=== PATIENT | male | born 1975 | race Two or more races ===

== ENCOUNTER 2020-01-07 08:45 | Inpatient (IN) | payer MEDICAID ==
[~2020-01-07] VITALS: Ht 157.5 cm; Wt 76.0 kg
--- NOTE | 2020-01-07 08:48 | Emergency Room Report ---
History of Present Illness General Chief Complaint: Chest Pain Source: Patient Present Illness HPI 44-year-old male here with left-sided chest pain. The patient says that approximately 1.5 hours prior to come to the emergency department he had the onset of left-sided chest pain. Pain is sharp in nature, radiates to his left shoulder. Patient has a history of diabetes, though is unsure of what medicine he is taking for that. Has a history of CAD status post stent placement at [facility] 1 year ago. Patient was given an aspirin en route to the emergency department by paramedics. Denies headaches, lightheadedness, fevers, chills, palpitations, shortness of breath, abdominal pain, diaphoresis, nausea, vomiting, diarrhea, dysuria. Allergies: Coded Allergies: PENICILLINS (Verified Allergy, Unknown, 01/07/20) COVID-19 Screening Contact w/high risk pt: No Experienced COVID-19 symptoms?: No COVID-19 Testing performed DIRECTOR OF PATIENT FINANCIAL SERVICES: No Nursing Documentation-[facility] Past Medical History: No History, Except For Hx Cardiac Problems: Yes Hx Diabetes: Yes Review of Systems All Other Systems: negative except mentioned in HPI Physical Exam Sp02 EP Interpretation: reviewed, normal General Appearance: no apparent distress, alert, non-toxic, moderate distress, other - Appears uncomfortable clutching his left chest Head: normocephalic, atraumatic Eyes: bilateral eye normal inspection, bilateral eye PERRL ENT: hearing grossly normal, normal pharynx, no angioedema, normal voice Neck: full range of motion, supple/symm/no masses Respiratory: chest non-tender, lungs clear, normal breath sounds, speaking full sentences Cardiovascular #1: regular rate, rhythm, no edema Cardiovascular #2: 2+ carotid (R), 2+ carotid (L), 2+ radial (R), 2+ radial (L), 2+ dorsalis pedis (R), 2+ dorsalis pedis (L) Gastrointestinal: normal bowel sounds, non tender, soft, non-distended, no guarding, no rebound Rectal: deferred Genitourinary: normal inspection, no CVA tenderness Musculoskeletal: back normal, normal range of motion, gait/station normal, non- tender Neurologic: alert, motor strength/tone normal, oriented x3, sensory intact, responsive, speech normal Psychiatric: judgement/insight normal, memory normal, mood/affect normal, no suicidal/homicidal ideation Lymphatic: no adenopathy Medical Decision Making Diagnostic Impression: Primary Impression: Chest pain Additional Impressions: KATHARINE (acute kidney injury) Anemia ER Course EKG: NSR, no ischemia, intervals WNL. No ectopy. 81bpm Rhythm strip: patient monitored for arrhythmias - no malignant dysrhythmias, runs of PVCs, nor pauses noted HEART score: 4 44-year-old male here with acute onset of left-sided chest pain. Patient is a history of CAD and had a highly concerning story and appeared uncomfortable on physical examination. He was given 4 mg of morphine in the emergency department. Received aspirin en route to the emergency department. He was noted to be hypertensive at 180/90 and was given 10 mg of labetalol IV. Patient denied any drug usage. CBC revealed anemia with hemoglobin of 9.7. Patient unaware of what his baseline hemoglobin is. CMP notable for severe acute kidney injury with a BUN of 57 and creatinine of 4.5. Patient unaware of what his baseline creatinine is. Patient denies any use of nephrotoxins. Electrolytes largely unremarkable including a normal potassium. Chest x-ray unremarkable. CT angiography of the chest unable to be performed due to the patient's severe acute kidney injury. Patient admitted to telemetry. Total critical care time: Approximately 25 minutes Due to a high probability of clinically significant, life threatening deterioration, the patient required the highest level of preparedness to intervene emergently and I personally spent this critical care time directly and personally managing the patient. This critical care time included obtaining a history, examining the patient, pulse oximetry, ordering and reviewing studies, ordering treatments, evaluating response to treatment and updating management plan as needed, frequent reassessment and discussion with other providers as well as arranging for ultimate disposition. This critical to care time was performed to assess and manage the high probability of life-threatening deterioration that could result in multiorgan failure. This critical care time is separate from the separately billable procedures and treating other patients. Laboratory Tests Test 01/07/20 08:45 01/07/20 08:48 D-Dimer 0.78 mg/L FEU (0.00-0.49) H Total Creatine Kinase 137 U/L (26-308) White Blood Count 7.1 K/UL (4.8-10.8) Red Blood Count 3.26 M/UL (4.70-6.10) L Hemoglobin 9.7 G/DL (14.2-18.0) L Hematocrit 29.5 % (42.0-52.0) L Mean Corpuscular Volume 91 FL (80-99) Mean Corpuscular Hemoglobin 29.9 PG (27.0-31.0) Mean Corpuscular Hemoglobin Concent 33.0 G/DL (32.0-36.0) Red Cell Distribution Width 13.1 % (11.6-14.8) Platelet Count 187 K/UL (150-450) Mean Platelet Volume 15.6 FL (6.5-10.1) H Neutrophils (%) (Auto) 63.6 % (45.0-75.0) Lymphocytes (%) (Auto) 23.2 % (20.0-45.0) Monocytes (%) (Auto) 5.1 % (1.0-10.0) Eosinophils (%) (Auto) 6.6 % (0.0-3.0) H Basophils (%) (Auto) 1.6 % (0.0-2.0) Sodium Level 137 MMOL/L (136-145) Potassium Level 5.0 MMOL/L (3.5-5.1) Chloride Level 106 MMOL/L (98-107) Carbon Dioxide Level 18 MMOL/L (21-32) L Blood Urea Nitrogen 54 mg/dL (7-18) H Creatinine 4.5 MG/DL (0.55-1.30) H Estimated Glomerular Filtration Rate 14.3 mL/min (>60) Glucose Level 163 MG/DL (74-106) H Calcium Level 8.1 MG/DL (8.5-10.1) L Total Bilirubin 0.2 MG/DL (0.2-1.0) Aspartate Amino Transferase (AST) 31 U/L (15-37) Alanine Aminotransferase (ALT) 59 U/L (12-78) Alkaline Phosphatase 255 U/L (46-116) H Troponin I 0.000 ng/mL (0.000-0.056) Total Protein 6.7 G/DL (6.4-8.2) Albumin 3.1 G/DL (3.4-5.0) L Globulin 3.6 g/dL Albumin/Globulin Ratio 0.9 (1.0-2.7) L Scripts Unable to Obtain Active Prescriptions or Reported Meds Uziel Jo M.D. Jan 07, 2020 08:48
[2020-01-07 08:50] VITALS: BP 176/78
--- NOTE | 2020-01-07 08:50 | NUR ---
ED Nurse Note: Pt BIBA for CP 12/17 since 744 this morning L chest, radiating to L arm. Pt is alert and orientedx4, ambulatory. Pt set up on monitor. Pt denies nausea, vomiting. Pt was given aspirin 324 mg. Blood sent and drawn. Pt came with 16g IV.
[2020-01-07 09:00] LABS: BASOPHILS % (AUTO) 1.6 % (0.0-2.0); EOSINOPHILS % (AUTO) 6.6 % (0.0-3.0); HEMATOCRIT 29.5 % (42.0-52.0); HEMOGLOBIN 9.7 G/DL (14.2-18.0); LYMPHOCYTES % (AUTO) 23.2 % (20.0-45.0); MEAN CORPUSCULAR VOLUME 91 FL (80-99); MONOCYTES % (AUTO) 5.1 % (1.0-10.0); NEUTROPHILS % (AUTO) 63.6 % (45.0-75.0); PLATELET COUNT 187 K/UL (150-450); RED BLOOD COUNT 3.26 M/UL (4.70-6.10); RED CELL DISTRIBUTION WIDTH 13.1 % (11.6-14.8); WHITE BLOOD COUNT 7.1 K/UL (4.8-10.8)
[2020-01-07] MEDS ORDERED: Morphine Sulfate 4mg/ml Inj (IV USE ONLY) ONE (09:00)
[2020-01-07] MEDS ORDERED: Morphine Sulfate 4mg/ml Inj (IV USE ONLY) IVP ONE (09:00)
[2020-01-07] MEDS ORDERED: Labetalol 5mg/ml 20ml vial IV ONE (09:15)
[2020-01-07 09:26] LABS: ALANINE AMINOTRANSFERASE 59 U/L (12-78); ALBUMIN 3.1 G/DL (3.4-5.0); ALBUMIN/GLOBULIN RATIO 0.9 (1.0-2.7); ALKALINE PHOSPHATASE 255 U/L (46-116); ASPARTATE AMINO TRANSFERASE 31 U/L (15-37); BILIRUBIN,TOTAL 0.2 MG/DL (0.2-1.0); BLOOD UREA NITROGEN 54 mg/dL (7-18); CALCIUM 8.1 MG/DL (8.5-10.1); CARBON DIOXIDE 18 MMOL/L (21-32); CHLORIDE 106 MMOL/L (98-107); CREATININE 4.5 MG/DL (0.55-1.30); SODIUM 137 MMOL/L (136-145)
--- NOTE | 2020-01-07 09:37 | NUR ---
EMERGENCY CONTACT: Cliff (sister): [phone]
[2020-01-07] MEDS ORDERED: HYDROmorphone 1mg/ml Carpuject IVP ONE (09:45)
[2020-01-07 09:51] LABS: CREATINE KINASE 137 U/L (26-308)
--- NOTE | 2020-01-07 09:56 | NUR ---
ED Nurse Note: COVID swab sent.
--- NOTE | 2020-01-07 10:05 | NUR ---
ED Nurse Note: Nursing a p supervisor Enma called regarding pt wanting to put money in safe.
--- NOTE | 2020-01-07 10:30 | NUR ---
ED Nurse Note: ERMD notified that pt unable to provide urine. Pt refuses straight cath.
--- NOTE | 2020-01-07 11:11 | NUR ---
ED Nurse Note: Pts money given to nursing supervisor dried yeast.
[2020-01-07 11:12] VITALS: BP 158/88
--- NOTE | 2020-01-07 11:41 | NUR ---
ED Nurse Note: Report given to Gladis BANERJEE.
--- NOTE | 2020-01-07 11:45 | NUR ---
NURSE NOTES: Pt transferred from ED via gurney to room 219-2. Received report from Madeline belonging check list done and signed with the transferring nurse. Pt alert and oriented X4, able to make needs known. site monitor placed, vital signs taken. Pt has cellphone [employer] at bedside. Pt has two IV acces right hand 16G and right AC 18G, both patent and clean. Pt oriented to room, call light and bathroom. Side rails up X2. Will follow up with primary dr for admissions orders.
--- NOTE | 2020-01-07 11:50 | NUR ---
ED Nurse Note: Pt transferred to tele unit with all belongings. No acute distress. Received by RN.
[2020-01-07 11:57] VITALS: BP 162/97
[2020-01-07] MEDS ORDERED: LISINOPRIL10 MG ORAL (12:53)
[2020-01-07] MEDS ORDERED: NORVASC10 MG ORAL (12:53)
[2020-01-07] MEDS ORDERED: LANTUS SOL100 UNIT/1 SUBQ (12:53)
[2020-01-07] MEDS ORDERED: ASPIRIN81 MG ORAL (12:53)
[2020-01-07] MEDS ORDERED: ATORVASTATIN CA80 MG ORAL (12:53)
--- NOTE | 2020-01-07 13:02 | Diagnostic Imaging Report ---
Indication: Chest pain Technique: One view of the chest Comparison: none Findings: Lungs and pleural spaces are clear. Heart size is normal. Impression: No acute process
--- NOTE | 2020-01-07 13:49 | Cardiac Electrophysiology PN ---
Subjective Subjective [id number] Objective Last 24 Hour Vital Signs Date Time Temp Pulse Resp B/P (MAP) Pulse Ox O2 Delivery O2 Flow Rate FiO2 01/07/20 11:57 97.7 86 19 162/97 (118) 97 01/07/20 11:57 Room Air 01/07/20 11:50 98.2 91 18 137/82 99 Room Air 01/07/20 11:12 98.6 83 18 158/88 99 Room Air 01/07/20 10:20 98.6 01/07/20 09:40 98.6 01/07/20 09:11 92 178/87 01/07/20 08:50 86 16 Room Air 98 01/07/20 08:50 98.6 86 16 176/78 98 Room Air 01/07/20 08:43 98.6 82 18 167/100 (122) 98 Room Air Laboratory Tests Test 01/07/20 08:45 01/07/20 08:48 D-Dimer 0.78 mg/L FEU (0.00-0.49) H Total Creatine Kinase 137 U/L (26-308) White Blood Count 7.1 K/UL (4.8-10.8) Red Blood Count 3.26 M/UL (4.70-6.10) L Hemoglobin 9.7 G/DL (14.2-18.0) L Hematocrit 29.5 % (42.0-52.0) L Mean Corpuscular Volume 91 FL (80-99) Mean Corpuscular Hemoglobin 29.9 PG (27.0-31.0) Mean Corpuscular Hemoglobin Concent 33.0 G/DL (32.0-36.0) Red Cell Distribution Width 13.1 % (11.6-14.8) Platelet Count 187 K/UL (150-450) Mean Platelet Volume 15.6 FL (6.5-10.1) H Neutrophils (%) (Auto) 63.6 % (45.0-75.0) Lymphocytes (%) (Auto) 23.2 % (20.0-45.0) Monocytes (%) (Auto) 5.1 % (1.0-10.0) Eosinophils (%) (Auto) 6.6 % (0.0-3.0) H Basophils (%) (Auto) 1.6 % (0.0-2.0) Sodium Level 137 MMOL/L (136-145) Potassium Level 5.0 MMOL/L (3.5-5.1) Chloride Level 106 MMOL/L (98-107) Carbon Dioxide Level 18 MMOL/L (21-32) L Blood Urea Nitrogen 54 mg/dL (7-18) H Creatinine 4.5 MG/DL (0.55-1.30) H Estimat Glomerular Filtration Rate 14.3 mL/min (>60) Glucose Level 163 MG/DL (74-106) H Calcium Level 8.1 MG/DL (8.5-10.1) L Total Bilirubin 0.2 MG/DL (0.2-1.0) Aspartate Amino Transf (AST/SGOT) 31 U/L (15-37) Alanine Aminotransferase (ALT/SGPT) 59 U/L (12-78) Alkaline Phosphatase 255 U/L (46-116) H Troponin I 0.000 ng/mL (0.000-0.056) Total Protein 6.7 G/DL (6.4-8.2) Albumin 3.1 G/DL (3.4-5.0) L Globulin 3.6 g/dL Albumin/Globulin Ratio 0.9 (1.0-2.7) L Microbiology Date/Time Source Procedure Growth Status 01/07/20 09:50 Nasopharynx SARS-CoV-2 RdRp Gene Assay - Final Complete Phan Pereira MD Jan 07, 2020 13:49
--- NOTE | 2020-01-07 13:54 | Consultation ---
Consult Note Consult Note I am asked to evaluate the patient at the request of Dr. Smith For renal failure 44-year-old male here with left-sided chest pain. The patient says that approximately 1.5 hours prior to come to the emergency department he had the onset of left-sided chest pain. Pain is sharp in nature, radiates to his left shoulder. Patient has a history of diabetes, though is unsure of what medicine he is taking for that. Has a history of CAD status post stent placement at [facility] 1 year ago. Patient was given an aspirin en route to the emergency department by paramedics. Denies headaches, lightheadedness, fevers, chills, palpitations, shortness of breath, abdominal pain, diaphoresis, nausea, vomiting, diarrhea, dysuria. Allergies: PENICILLINS (Verified Allergy, Unknown, 01/07/20) COVID-19 Screening Contact w/high risk pt: No Experienced COVID-19 symptoms?: No COVID-19 Testing performed SKILLED NURSING FACILITIES PROFESSIONAL: No Past Medical History: No History, Except For Hx Cardiac Problems: Yes Hx Diabetes: Yes SOCIAL HISTORY: He has a history of cocaine and methamphetamine use, but it was a couple of years ago. PHYSICAL EXAMINATION: VITAL SIGNS: Blood pressure of 160/97, pulse is 86, respirations 19, temperature 97.7. HEAD AND NECK: No JVD. LUNGS: Clear. CARDIOVASCULAR: Regular S1 and S2 with no gallop or murmur. ABDOMEN: Soft. EXTREMITIES: No pitting edema. LABORATORY AND DIAGNOSTIC DATA: His EKG showed normal sinus rhythm, essentially normal electrocardiogram. Labs show sodium of 137, potassium 5.0, BUN of 54, creatinine 4.5, and glucose of 163. Troponin is negative. White count is 7.5, hematocrit 9.7, hematocrit 29.5, platelet count of 187. . Assessment/Plan Acute renal failure, possible underlying chronic kidney disease Chest pain, coronary artery disease Anemia Hypertension Diabetes mellitus Suggestions: Urine studies Urine analysis Urine tox screen [place] Kidney ultrasound Anemia work-up Keep the blood pressure and blood sugar in check Avoid nephrotoxic's Per orders Hung Pennington MD Jan 07, 2020 13:54
[2020-01-07] MEDS ORDERED: Zolpidem 5mg tab ORAL PRN (14:15)
--- NOTE | 2020-01-07 14:15 | History and Physical Report ---
DATE OF ADMISSION: 01/07/2020 TIME SEEN: 10 a.m. CONSULTANTS: 1. Sreedhar Aguirre MD. 2. Hung Pennington MD. 3. Phan Pereira MD. CHIEF COMPLAINT: Chest pain. BRIEF HISTORY: This is a 44-year-old male, who lives at home, presents with chest pain, since early this morning. It was pressure like, no radiation, slight short of breath. No loss of consciousness. The patient was feeling little weak and dizzy, came to [place], diagnosed as above in the ER, now being admitted to [facility]. Currently slightly anxious in bed, slightly weak. No complaint otherwise. REVIEW OF SYSTEMS: Slight chest pain. Slightly short of breath. Slight nausea. No vomiting or diarrhea. PAST MEDICAL HISTORY: Includes diabetes, CAD, hypertension, KATHARINE. PAST SURGICAL HISTORY: Stent placement. ALLERGIES: Penicillin. MEDICATIONS: Include hydromorphone, labetalol, morphine. SOCIAL HISTORY: No smoking. No alcohol. No intravenous drug abuse. FAMILY HISTORY: Noncontributory. PHYSICAL EXAMINATION: GENERAL: Slightly anxious in bed, oriented x3, in no acute distress. VITAL SIGNS: Temperature is 98 degrees, pulse 92, respirations 16, blood pressure __/87. CARDIOVASCULAR: No murmur. LUNGS: Distant and clear. ABDOMEN: Bowel sound positive. Nontender. Nondistended. EXTREMITIES: No cyanosis or edema. NEUROLOGIC: The patient moves all extremities, slightly weak. LABORATORY AND DIAGNOSTIC DATA: Labs at this time show hemoglobin and hematocrit 9.0/29, otherwise CBC is normal. BMP showed CO2 18, BUN and creatinine are 54/4.5, renal failure. Glucose 163. Troponin 0.00. Albumin 3.1. D-dimer is 0.78. ASSESSMENT: 1. Chest pain. 2. Shortness of breath. 3. Renal failure. 4. Weakness. 5. Anemia. 6. Malnutrition. 7. Diabetes. 8. Hypertension. 9. CAD. PLAN: 1. Resume home medications. 2. Blood pressure and blood sugar control. 3. Pain control. 4. Dietary followup. 5. Troponin q.8 h. x3. 6. EKG in a.m. 7. Cardiology, Nephrology, and Endocrine evaluation. 8. CBC and BMP in the morning. Santiago Esqueda D.O. DR: TENA JOB#: [id number] CC:
[2020-01-07] MEDS: Tamsulosin 0.4mg cap ORAL SCH ×2 (14:58→18:16)
[2020-01-07 16:00] VITALS: BP 174/89
--- NOTE | 2020-01-07 16:51 | Diagnostic Imaging Report ---
Indication: Acute renal failure Technique: Grayscale and duplex images of the kidneys, retroperitoneum, and bladder were obtained. Comparison: none Findings: Right kidney measures 9 cm in length. Left kidney measures 10.2 cm in length. Both kidneys demonstrate normal echogenicity. No hydronephrosis. No focal abnormality. Normal inferior vena cava. Bladder is normal. Impression: negative.
--- NOTE | 2020-01-07 18:45 | Consultation ---
DATE OF CONSULTATION: 01/07/2020 CARDIOLOGY CONSULTATION REFERRING PHYSICIAN: Santiago Esqueda D.O. REASON FOR THE CONSULTATION: Chest pain. HISTORY OF PRESENT ILLNESS: The patient is a 44-year-old gentleman with a history of hypertension, diabetes, and history of CVA in the past, with a history of coronary artery disease, history of prior stent placement, who presented to the emergency room with 1-1/2 hours of left-sided chest pain with radiation to the arm. He denies any nausea, vomiting, syncope, or presyncope. The stent was in [facility] about a year ago. The patient received aspirin and was admitted. His EKG was completely normal with no evidence of ischemia, and his first troponin was negative. REVIEW OF SYSTEMS: Negative other than what was mentioned in history of present illness. PAST MEDICAL HISTORY: As mentioned above. FAMILY HISTORY: Noncontributory. SOCIAL HISTORY: He has a history of cocaine and methamphetamine use, but it was a couple of years ago. PHYSICAL EXAMINATION: VITAL SIGNS: Blood pressure of 160/97, pulse is 86, respirations 19, temperature 97.7. HEAD AND NECK: No JVD. LUNGS: Clear. CARDIOVASCULAR: Regular S1 and S2 with no gallop or murmur. ABDOMEN: Soft. EXTREMITIES: No pitting edema. LABORATORY AND DIAGNOSTIC DATA: His EKG showed normal sinus rhythm, essentially normal electrocardiogram. Labs show sodium of 137, potassium 5.0, BUN of 54, creatinine 4.5, and glucose of 163. Troponin is negative. White count is 7.5, hematocrit 9.7, hematocrit 29.5, platelet count of 187. ASSESSMENT AND PLAN: 1. Chest pain and left arm pain. The patient is with a history of coronary artery disease and prior stent in [place]. We will try to get those records from [facility]. In the meantime, continue aspirin and add beta-lucas and continue Lipitor 80 mg daily. 2. We will also get an echocardiogram for further evaluation. 3. Hypertension. Avoid YOUSUF inhibitor and angiotensin-receptor lucas in view of creatinine of 4.5. Start the patient on amlodipine 10 mg daily and discontinue lisinopril. We will add p.r.n. clonidine to his medical regimen. Increase lisinopril to 10 mg and add metoprolol 25 mg b.i.d. 4. Hyperlipidemia, on Lipitor 80 mg daily. 5. Diabetes, on insulin. 6. History of prior CVA in April 2018. 7. Acute renal failure, creatinine of 4.5. Thank you very much for allowing me to participate in the care of this patient. Please do not hesitate to contact me for any questions regarding my evaluation. Phan Pereira M.D. DR: KRYSTAL JOB#: [id number] CC:
--- NOTE | 2020-01-07 19:17 | NUR ---
NURSE HAND-OFF REPORT: Important Events on Shift:New admissions Patient Status: stable Diet: Renal Pending Orders: Pending Results/Labs: Pending MD notification: Latest Vital Signs: Temperature 97.7 , Pulse 88 , B/P 174 /89 , Respiratory Rate 21 , O2 SAT 100 , Room Air, O2 Flow Rate . Vital Sign Comment: Stable EKG Rhythm: Sinus Rhythm Rhythm change?: N MD Notified?: - MD Response: Latest Flores Fall Score: 35 Fall Risk: Medium Risk Safety Measures: Call light Within Reach, Bed Alarm Zone 1, Side Rails Side Rails x2, Bed position Low and Locked. Fall Precautions: Door Sign Patient Fall Education Report given to [place]/RN.
--- NOTE | 2020-01-07 19:33 | NUR ---
NURSE NOTES: Patient received from Gladis RN. Patient in stable condition. Alert and ortiented x 4. Resting in bed comfortably. Saturating well on Room Air. Georgian speaking. IV site alina Right hand 18G and Right AC 18G Saline locked. Bed in lwoest position and locked. Call light and bedside table within reach. Will continue plan of care.
--- NOTE | 2020-01-07 19:55 | NUR ---
NURSE NOTES: Patient complaining of Chest pain that feels heavy rating it 10/10 and radiating to left arm. Dr Esqueda covering for Dr Sarmiento notified as well as Cardio consult Dr. Pereira. Awaiting call back.
[2020-01-07 20:00] VITALS: BP 159/85
[2020-01-07] MEDS: Morphine Sulfate 2mg/ml Inj(IV/IM USE ONLY) IVP PRN (20:45)
[2020-01-07] MEDS: Atorvastatin 80mg tab ORAL SCH (20:45)
[2020-01-07] MEDS: Heparin 5000 units/ml inj SUBQ SCH (20:55)
[2020-01-07] MEDS: Levemir Flexpen SUBQ SCH (20:55)
--- NOTE | 2020-01-07 21:18 | NUR ---
NURSE NOTES: MD called back ordered for Nitroglycerin SL verified and carried out. Gave PRN medication. Patient still complaining of Left arm pain but no more chest pain. STAT EKG done and sent over to Dr. Pereira.
[2020-01-07] MEDS: Nitroglycerin Subl 0.4mg tab SL PRN ×2 (21:29→21:40)
[2020-01-08] VITALS: BP 157/87
[2020-01-08] MEDS: Morphine Sulfate 2mg/ml Inj(IV/IM USE ONLY) IVP PRN ×5 (01:39→21:35)
--- NOTE | 2020-01-08 01:50 | NUR ---
NURSE NOTES: Faxed over Request for release of medical records at [facility] as per Dr. Pereira to confirm procedures done in the hospital
[2020-01-08 04:00] VITALS: BP 153/86
--- NOTE | 2020-01-08 07:37 | NUR ---
NURSE HAND-OFF REPORT: Important Events on Shift:[Chest pain radiating to left arm MD aware] Patient Status: [] Diet: [Renal Diet and CCHO Medium] Pending Orders: [] Pending Results/Labs:[] Pending MD notification:[] Latest Vital Signs: Temperature 97.6 , Pulse 74 , B/P 153 /86 , Respiratory Rate 20 , O2 SAT 99 , Room Air, O2 Flow Rate . Vital Sign Comment: [] EKG Rhythm: Sinus Rhythm Rhythm change?: N MD Notified?: - MD Response: Latest Flores Fall Score: 35 Fall Risk: Medium Risk Safety Measures: Call light Within Reach, Bed Alarm Zone 1, Side Rails Side Rails x1, Bed position Low and Locked. Fall Precautions: Yellow Socks Yellow Gown Door Sign Patient Fall Education Report given to [Kandace BANERJEE].
[2020-01-08 08:00] VITALS: BP 152/75
--- NOTE | 2020-01-08 08:00 | NUR ---
NURSE NOTES: pt AOx4, and talking. currently having L arm pain but no chest pain. Pt on audit mgr. Pt has no SOB. Bed in lowest position, call light within reach. Will continue to monitor.
[2020-01-08 08:42] LABS: BASOPHILS % (AUTO) 0.9 % (0.0-2.0); EOSINOPHILS % (AUTO) 4.8 % (0.0-3.0); HEMATOCRIT 26.2 % (42.0-52.0); HEMOGLOBIN 8.6 G/DL (14.2-18.0); LYMPHOCYTES % (AUTO) 13.9 % (20.0-45.0); MEAN CORPUSCULAR VOLUME 90 FL (80-99); MONOCYTES % (AUTO) 4.4 % (1.0-10.0); NEUTROPHILS % (AUTO) 75.9 % (45.0-75.0); PLATELET COUNT 162 K/UL (150-450); RED CELL DISTRIBUTION WIDTH 13.5 % (11.6-14.8); WHITE BLOOD COUNT 6.8 K/UL (4.8-10.8)
[2020-01-08] MEDS: Aspirin Baby 81mg ORAL SCH (08:48)
[2020-01-08] MEDS: Tamsulosin 0.4mg cap ORAL SCH ×2 (08:48→17:24)
[2020-01-08] MEDS: Heparin 5000 units/ml inj SUBQ SCH ×2 (08:50→20:51)
[2020-01-08] MEDS ORDERED: Aspirin Baby 81mg ORAL SCH (09:00)
[2020-01-08 09:11] LABS: % IRON SATURATION 15 % (15-50); GAMMA GLUTAMYL TRANSPEPTIDASE 66 U/L (5-85); IRON 36 ug/dL (50-175); PHOSPHORUS 4.9 MG/DL (2.5-4.9); TOTAL IRON BINDING CAPACITY 245 ug/dL (250-450)
[2020-01-08 09:15] LABS: CREATINE KINASE 111 U/L (26-308)
[2020-01-08 09:16] LABS: ALANINE AMINOTRANSFERASE 42 U/L (12-78); ALBUMIN/GLOBULIN RATIO 0.9 (1.0-2.7); ALKALINE PHOSPHATASE 216 U/L (46-116); ASPARTATE AMINO TRANSFERASE 20 U/L (15-37); BILIRUBIN,TOTAL 0.2 MG/DL (0.2-1.0); BLOOD UREA NITROGEN 46 mg/dL (7-18); CALCIUM 8.2 MG/DL (8.5-10.1); CARBON DIOXIDE 17 MMOL/L (21-32); CHLORIDE 103 MMOL/L (98-107); CHOLESTEROL 180 MG/DL (< 200); CREATININE 3.8 MG/DL (0.55-1.30); FERRITIN 177 NG/ML (8-388); HDL CHOLESTEROL 59 MG/DL (40-60); POTASSIUM 4.6 MMOL/L (3.5-5.1); SODIUM 133 MMOL/L (136-145); TRIGLYCERIDES 130 MG/DL (30-150)
--- NOTE | 2020-01-08 10:20 | General Progress Note ---
Subjective Constitutional: Reports: weakness Allergies: Coded Allergies: PENICILLINS (Verified Allergy, Unknown, 01/07/20) All Systems: reviewed and negative except above Subjective calm in bed Objective Last 24 Hour Vital Signs Date Time Temp Pulse Resp B/P (MAP) Pulse Ox O2 Delivery O2 Flow Rate FiO2 01/08/20 09:04 Room Air 01/08/20 08:48 78 152/75 01/08/20 08:00 97.6 78 18 152/75 (100) 97 01/08/20 04:00 74 01/08/20 04:00 97.6 74 20 153/86 (108) 99 01/08/20 00:00 84 01/08/20 00:00 97.5 76 18 157/87 (110) 99 01/07/20 21:40 100/71 01/07/20 21:29 140/80 01/07/20 21:00 Room Air 01/07/20 20:00 85 01/07/20 20:00 98.1 82 21 159/85 (109) 99 01/07/20 18:16 174/89 01/07/20 16:00 97.7 71 21 174/89 (117) 100 01/07/20 16:00 88 01/07/20 12:00 78 01/07/20 11:57 97.7 86 19 162/97 (118) 97 01/07/20 11:57 Room Air 01/07/20 11:50 98.2 91 18 137/82 99 Room Air 01/07/20 11:12 98.6 83 18 158/88 99 Room Air 01/07/20 10:20 98.6 Intake and Output 01/07/20 01/08/20 19:00 07:00 Intake Total 480 ml Balance 480 ml Intake Oral 480 ml # Voids 4 # Bowel Movements 1 Laboratory Tests 01/07/20 15:30: Troponin I 0.007 01/07/20 20:53: POC Whole Blood Glucose [Pending] 01/07/20 23:05: Troponin I 0.010 01/08/20 08:25: Troponin I 0.005, White Blood Count 6.8, Red Blood Count 2.90L, Hemoglobin 8.6L, Hematocrit 26.2L, Mean Corpuscular Volume 90, Mean Corpuscular Hemoglobin 29.8, Mean Corpuscular Hemoglobin Concent 33.0, Red Cell Distribution Width 13.5, Platelet Count 162, Mean Platelet Volume 16.1H, Neutrophils (%) (Auto) 75.9H, Lymphocytes (%) (Auto) 13.9L, Monocytes (%) (Auto) 4.4, Eosinophils (%) (Auto) 4.8H, Basophils (%) (Auto) 0.9, Sodium Level 133L, Potassium Level 4.6, Chloride Level 103, Carbon Dioxide Level 17L, Blood Urea Nitrogen 46H, Creatinine 3.8H, Estimat Glomerular Filtration Rate 17.4, Glucose Level 118H, Hemoglobin A1c 5.6, Uric Acid 7.2, Calcium Level 8.2L, Phosphorus Level 4.9, Magnesium Level 1.4L, Iron Level 36L, Total Iron Binding Capacity 245L, Percent Iron Saturation 15, Unsaturated Iron Binding 209, Ferritin 177, Total Bilirubin 0.2, Gamma Glutamyl Transpeptidase 66, Aspartate Amino Transf (AST/SGOT) 20, Alanine Aminotransfe rase (ALT/SGPT) 42, Alkaline Phosphatase 216H, Total Creatine Kinase 111, C- Reactive Protein, Quantitative 0.9, Pro-B-Type Natriuretic Peptide 343H, Total Protein 6.4, Albumin 3.0L, Globulin 3.4, Albumin/Globulin Ratio 0.9L, Triglycerides Level 130, Cholesterol Level 180, LDL Cholesterol 100, HDL Ch olesterol 59, Cholesterol/HDL Ratio 3.1L, Vitamin B12 Level 845, Folate 6.9L, Thyroid Stimulating Hormone (TSH) 3.229 Height (Feet): 5 Height (Inches): 2.00 Weight (Pounds): 160 General Appearance: lethargic EENT: normal ENT inspection Neck: normal alignment Cardiovascular: normal peripheral pulses, normal rate, regular rhythm Respiratory/Chest: chest wall non-tender, lungs clear, normal breath sounds Abdomen: normal bowel sounds, non tender, soft Extremities: normal inspection Edema: no edema noted Arm (L), no edema noted Arm (R), no edema noted Leg (L), no edema noted Leg (R), no edema noted Pedal (L), no edema noted Pedal (R), no edema noted Generalized Neurologic: motor weakness Skin: normal pigmentation, warm/dry Assessment/Plan Problem List: (1) SOB (shortness of breath) ICD Codes: R06.02 - Shortness of breath SNOMED: 084262144 (2) HTN (hypertension) ICD Codes: I10 - Essential (primary) hypertension SNOMED: 06047389 (3) Diabetes ICD Codes: E11.9 - Type 2 diabetes mellitus without complications SNOMED: 32710354 (4) Malnutrition ICD Codes: E46 - Unspecified protein-calorie malnutrition SNOMED: 08618031 (5) Weak ICD Codes: R53.1 - Weakness SNOMED: 98178120 (6) Anemia ICD Codes: D64.9 - Anemia, unspecified SNOMED: 513429597 (7) Chest pain ICD Codes: R07.9 - Chest pain, unspecified SNOMED: 02981003 (8) KATHARINE (acute kidney injury) ICD Codes: N17.9 - Acute kidney failure, unspecified SNOMED: 62803474, 1625959 Status: unchanged Assessment/Plan: pain control cardio neph f/u cbc bmp am Santiago Esqueda DO Jan 08, 2020 10:20
--- NOTE | 2020-01-08 11:31 | NUR ---
NURSE NOTES: notifed doctor Esqueda of patients latest labs, waiting for orders.
[2020-01-08 12:00] VITALS: BP 157/92
--- NOTE | 2020-01-08 12:56 | NUR ---
NURSE NOTES: Dr. Esqueda advised to contact doctor Gorge, doctor is aware of labs, he will put orders soon.
--- NOTE | 2020-01-08 14:30 | NUR ---
NURSE NOTES: per T/O order 2mg of magnesium sulfate IV once. Doctor Gorge will enter the remaining orders once he has access to a computer.
--- NOTE | 2020-01-08 15:12 | Cardiac Electrophysiology PN ---
Assessment/Plan Assessment/Plan 1. Chest pain and left arm pain. The patient is with a history of coronary artery disease and prior stent. We will try to get those records from [facility] Ruled out for DC. In the meantime, continue aspirin and Lipitor 80 mg daily and Lopressor 25 bid. EF 65% 2. Hypertension. Avoid YOUSUF inhibitor and angiotensin-receptor lucas in view of creatinine of 4.5. On amlodipine 10 mg daily, p.r.n. clonidine add metoprolol 25 mg b.i.d. 4. Hyperlipidemia, on Lipitor 80 mg daily. 5. Diabetes, on insulin. 6. History of prior CVA in April 2018. 7. Acute renal failure, creatinine of 4.5. Cr now is 3.5 DW RN Subjective Subjective No CP or SOB.In SR on tele Objective Last 24 Hour Vital Signs Date Time Temp Pulse Resp B/P (MAP) Pulse Ox O2 Delivery O2 Flow Rate FiO2 01/08/20 12:00 97.9 86 18 157/92 (113) 100 01/08/20 09:04 Room Air 01/08/20 08:48 78 152/75 01/08/20 08:00 97.6 78 18 152/75 (100) 97 01/08/20 08:00 77 01/08/20 04:00 74 01/08/20 04:00 97.6 74 20 153/86 (108) 99 01/08/20 00:00 84 01/08/20 00:00 97.5 76 18 157/87 (110) 99 01/07/20 21:40 100/71 01/07/20 21:29 140/80 01/07/20 21:00 Room Air 01/07/20 20:00 85 01/07/20 20:00 98.1 82 21 159/85 (109) 99 01/07/20 18:16 174/89 01/07/20 16:00 97.7 71 21 174/89 (117) 100 01/07/20 16:00 88 Intake and Output 01/07/20 01/08/20 19:00 07:00 Intake Total 480 ml Balance 480 ml Intake Oral 480 ml # Voids 4 # Bowel Movements 1 Laboratory Tests Test 01/07/20 15:30 01/07/20 20:53 01/07/20 23:05 01/08/20 08:25 Troponin I 0.007 ng/mL (0.000-0.056) 0.010 ng/mL (0.000-0.056) 0.005 ng/mL (0.000-0.056) POC Whole Blood Glucose Pending White Blood Count 6.8 K/UL (4.8-10.8) Red Blood Count 2.90 M/UL (4.70-6.10) L Hemoglobin 8.6 G/DL (14.2-18.0) L Hematocrit 26.2 % (42.0-52.0) L Mean Corpuscular Volume 90 FL (80-99) Mean Corpuscular Hemoglobin 29.8 PG (27.0-31.0) Mean Corpuscular Hemoglobin Concent 33.0 G/DL (32.0-36.0) Red Cell Distribution Width 13.5 % (11.6-14.8) Platelet Count 162 K/UL (150-450) Mean Platelet Volume 16.1 FL (6.5-10.1) H Neutrophils (%) (Auto) 75.9 % (45.0-75.0) H Lymphocytes (%) (Auto) 13.9 % (20.0-45.0) L Monocytes (%) (Auto) 4.4 % (1.0-10.0) Eosinophils (%) (Auto) 4.8 % (0.0-3.0) H Basophils (%) (Auto) 0.9 % (0.0-2.0) Sodium Level 133 MMOL/L (136-145) L Potassium Level 4.6 MMOL/L (3.5-5.1) Chloride Level 103 MMOL/L (98-107) Carbon Dioxide Level 17 MMOL/L (21-32) L Blood Urea Nitrogen 46 mg/dL (7-18) H Creatinine 3.8 MG/DL (0.55-1.30) H Estimat Glomerular Filtration Rate 17.4 mL/min (>60) Glucose Level 118 MG/DL (74-106) H Hemoglobin A1c 5.6 % (4.3-6.0) Uric Acid 7.2 MG/DL (2.6-7.2) Calcium Level 8.2 MG/DL (8.5-10.1) L Phosphorus Level 4.9 MG/DL (2.5-4.9) Magnesium Level 1.4 MG/DL (1.8-2.4) L Iron Level 36 ug/dL (50-175) L Total Iron Binding Capacity 245 ug/dL (250-450) L Percent Iron Saturation 15 % (15-50) Unsaturated Iron Binding 209 ug/dL (112-346) Ferritin 177 NG/ML (8-388) Total Bilirubin 0.2 MG/DL (0.2-1.0) Gamma Glutamyl Transpeptidase 66 U/L (5-85) Aspartate Amino Transf (AST/SGOT) 20 U/L (15-37) Alanine Aminotransferase (ALT/SGPT) 42 U/L (12-78) Alkaline Phosphatase 216 U/L (46-116) H Total Creatine Kinase 111 U/L (26-308) C-Reactive Protein, Quantitative 0.9 mg/dL (0.00-0.90) Pro-B-Type Natriuretic Peptide 343 pg/mL (0-125) H Total Protein 6.4 G/DL (6.4-8.2) Albumin 3.0 G/DL (3.4-5.0) L Globulin 3.4 g/dL Albumin/Globulin Ratio 0.9 (1.0-2.7) L Triglycerides Level 130 MG/DL (30-150) Cholesterol Level 180 MG/DL (< 200) LDL Cholesterol 100 mg/dL (<100) HDL Cholesterol 59 MG/DL (40-60) Cholesterol/HDL Ratio 3.1 (3.3-4.4) L Vitamin B12 Level 845 PG/ML (193-986) Folate 6.9 NG/ML (8.6-58.9) L Thyroid Stimulating Hormone (TSH) 3.229 uiU/mL (0.358-3.740) Microbiology Date/Time Source Procedure Growth Status 01/07/20 09:50 Nasopharynx SARS-CoV-2 RdRp Gene Assay - Final Complete Objective HEAD AND NECK: No JVD. LUNGS: Clear. CARDIOVASCULAR: Regular S1 and S2 with no gallop or murmur. ABDOMEN: Soft. EXTREMITIES: No pitting edema. Phan Pereira MD Jan 08, 2020 15:12
[2020-01-08 16:00] VITALS: BP 138/84
--- NOTE | 2020-01-08 16:00 | Consultation ---
DATE OF CONSULTATION: 01/08/2020 ENDOCRINOLOGY CONSULTATION REFERRING PHYSICIAN: Santiago Esqueda D.O. REASON FOR CONSULTATION: Diabetes management. HISTORY OF PRESENT ILLNESS: The patient is a 44-year-old male with past medical history of diabetes, on insulin, hypertension, history of CVA, coronary artery disease, stent placement, and chronic kidney disease, who presented to the hospital with chest pain. Glucose was elevated, thus Endocrinology was consulted. PAST MEDICAL HISTORY: 1. Chronic kidney disease. 2. Hypertension. 3. Diabetes. 4. CVA. 5. Coronary disease, with stent placement. PAST SURGICAL HISTORY: Stent placement. FAMILY HISTORY: Noncontributory. SOCIAL HISTORY: Has history of cocaine and methamphetamine abuse a couple of years ago. No alcohol or drug use. REVIEW OF SYSTEMS: As per HPI. MEDICATIONS: Reviewed and reconciled. LABORATORY VALUES: WBC 6, hemoglobin 8.6, hematocrit 26.2, platelet count 162. Sodium 132, potassium 4.6, chloride 103, bicarb 17, BUN 46, creatinine 3.6, GFR of 17, glucose 118. A1c 5.6, on presentation had a glucose of 163, alk phos 253. TSH is 3.2. PHYSICAL EXAMINATION: GENERAL: Awake and alert. VITAL SIGNS: Blood pressure 152/75, heart rate 78, temperature 97.6, respiratory rate of 18. HEENT: Pupils equal and reactive to light. Sclerae anicteric. NECK: No JVD. No thyromegaly. No bruits. LUNGS: Clear. HEART: Regular rate and rhythm. ABDOMEN: Positive bowel sounds. EXTREMITIES: No clubbing, cyanosis, or edema. DIAGNOSES: 1. Chest pain. 2. Diabetes, out of control. 3. Chronic kidney disease. PLAN: 1. Levemir 6 units at bedtime. 2. NovoLog sliding scale before meals and at bedtime. 3. Hypoglycemia protocol is in order. 4. Further adjustment according to the blood glucose values. Thank you Dr. Esqueda for the courtesy of this consultation. Sreedhar Aguirre M.D. DR: PAULA JOB#: [id number] CC: MADDIE
--- NOTE | 2020-01-08 18:59 | NUR ---
NURSE HAND-OFF REPORT: Important Events on Shift:patient is complaining of arm pain 9/10 but no chest pain or SOB. Warm towels seem to be helping with arm pain Patient Status: full code Diet: ccho M Pending Orders: morning labs Pending Results/Labs: Pending MD notification: Latest Vital Signs: Temperature 98.8 , Pulse 87 , B/P 138 /84 , Respiratory Rate 18 , O2 SAT 98 , Room Air, O2 Flow Rate . Vital Sign Comment: EKG Rhythm: Sinus Rhythm Rhythm change?: N MD Notified?: - MD Response: Latest Flores Fall Score: 35 Fall Risk: Medium Risk Safety Measures: Call light Within Reach, Bed Alarm Zone 1, Side Rails Side Rails x1, Bed position Low and Locked. Fall Precautions: Yellow Socks y Yellow Gown y Door Sign Patient Fall Education y pt able to walk to the restroom on his own Report given to Starla/RN .
--- NOTE | 2020-01-08 19:30 | NUR ---
NURSE NOTES: Received report from LAVONNE Jeronimo. Patient is awake on bed, alert and oriented x 4. surveillance monitor is in place, shows sinus rhythm with no chest pain reported. On renal CCHO (Medium), instructed and amenable. On room air, sating 98%. IV site is on right hand g-18 saline lock and right AC G-18 saline lock that is patent and intact. Patient is ambulatory with steady gait. Safety measures are in place, bed in lowest and locked position, side rails up x 2, call light button and bedside table within reach, will continue plan of care.
--- NOTE | 2020-01-08 19:31 | Nephrology Progress Note ---
Assessment/Plan Problem List: (1) KATHARINE (acute kidney injury) (2) Anemia (3) Diabetes (4) HTN (hypertension) Assessment Acute renal failure, possible underlying chronic kidney disease Chest pain, coronary artery disease Anemia Hypertension Diabetes mellitus Plan Magnesium supplement IV Urine studies Urine analysis Urine tox screen Flomax Kidney ultrasound, normal, negative hydronephrosis Anemia work-up, noted Keep the blood pressure and blood sugar in check Avoid nephrotoxic's Per orders Subjective ROS Limited/Unobtainable: No Constitutional: Reports: malaise, weakness Objective Objective Last 24 Hour Vital Signs Date Time Temp Pulse Resp B/P (MAP) Pulse Ox O2 Delivery O2 Flow Rate FiO2 01/08/20 16:00 98.8 87 18 138/84 (102) 98 01/08/20 15:30 80 01/08/20 12:00 97.9 86 18 157/92 (113) 100 01/08/20 12:00 94 01/08/20 09:04 Room Air 01/08/20 08:48 78 152/75 01/08/20 08:00 97.6 78 18 152/75 (100) 97 01/08/20 08:00 77 01/08/20 04:00 74 01/08/20 04:00 97.6 74 20 153/86 (108) 99 01/08/20 00:00 84 01/08/20 00:00 97.5 76 18 157/87 (110) 99 01/07/20 21:40 100/71 01/07/20 21:29 140/80 01/07/20 21:00 Room Air 01/07/20 20:00 85 01/07/20 20:00 98.1 82 21 159/85 (109) 99 Intake and Output 01/07/20 01/08/20 19:00 07:00 Intake Total 480 ml Balance 480 ml Intake Oral 480 ml # Voids 4 # Bowel Movements 1 Current Medications Medications (Trade) Dose Ordered Sig/Jose Enrique Route PRN Reason Start Time Stop Time Status Last Admin Dose Admin Acetaminophen (Tylenol) 650 mg Q6H PRN ORAL For Pain 01/07/20 14:15 02/06/20 14:14 01/07/20 14:59 Amlodipine Besylate (Norvasc) 10 mg DAILY ORAL 01/08/20 09:00 02/07/20 08:59 01/08/20 08:48 Aspirin (ASA) 81 mg DAILY ORAL 01/08/20 09:00 02/22/20 08:59 01/08/20 08:48 Atorvastatin Calcium (Lipitor) 80 mg BEDTIME ORAL 01/07/20 21:00 04/06/20 20:59 01/07/20 20:45 Clonidine HCl (Catapres Tab) 0.1 mg Q4H PRN ORAL sbp>170 01/07/20 14:00 04/06/20 13:59 01/07/20 18:16 Dextrose (Dextrose 50%) 25 ml Q30M PRN IV Hypoglycemia 01/07/20 14:30 04/06/20 14:29 Dextrose (Dextrose 50%) 50 ml Q30M PRN IV Hypoglycemia 01/07/20 14:30 04/06/20 14:29 Heparin Sodium (Porcine) (Heparin 5000 units/ml) 5,000 units EVERY 12 HOURS SUBQ 01/07/20 21:00 02/21/20 20:59 01/08/20 08:50 Insulin Detemir (Levemir) 6 units BEDTIME SUBQ 01/07/20 21:00 04/06/20 20:59 01/07/20 20:55 Metoprolol Tartrate (Lopressor) 25 mg Q12HR ORAL 01/08/20 21:00 04/07/20 20:59 Morphine Sulfate (Morphine Sulfate) 2 mg Q4H PRN IVP For Pain 01/07/20 20:30 01/14/20 20:29 01/08/20 17:25 Nitroglycerin (Ntg) 0.4 mg Q5M PRN SL Prn Chest Pain 01/07/20 21:20 02/06/20 21:19 01/07/20 21:40 Tamsulosin HCl (Flomax) 0.4 mg BID ORAL 01/08/20 18:00 02/07/20 17:59 01/08/20 17:24 Zolpidem Tartrate (Ambien) 5 mg HSPRN PRN ORAL Insomnia 01/07/20 14:15 01/14/20 14:14 Laboratory Tests 01/07/20 20:53: POC Whole Blood Glucose [Pending] 01/07/20 23:05: Troponin I 0.010 01/08/20 08:25: Troponin I 0.005, White Blood Count 6.8, Red Blood Count 2.90L, Hemoglobin 8.6L, Hematocrit 26.2L, Mean Corpuscular Volume 90, Mean Corpuscular Hemoglobin 29.8, Mean Corpuscular Hemoglobin Concent 33.0, Red Cell Distribution Width 13.5, Platelet Count 162, Mean Platelet Volume 16.1H, Neutrophils (%) (Auto) 75.9H, Lymphocytes (%) (Auto) 13.9L, Monocytes (%) (Auto) 4.4, Eosinophils (%) (Auto) 4.8H, Basophils (%) (Auto) 0.9, Sodium Level 133L, Potassium Level 4.6, Chloride Level 103, Carbon Dioxide Level 17L, Blood Urea Nitrogen 46H, Creatinine 3.8H, Estimat Glomerular Filtration Rate 17.4, Glucose Level 118H, Hemoglobin A1c 5.6, Uric Acid 7.2, Calcium Level 8.2L, Phosphorus Level 4.9, Magnesium Level 1.4L, Iron Level 36L, Total Iron Binding Capacity 245L, Percent Iron Saturation 15, Unsaturated Iron Binding 209, Ferritin 177, Total Bilirubin 0.2, Gamma Glutamyl Transpeptidase 66, Aspartate Amino Transf (AST/SGOT) 20, Alanine Aminotransferas e (ALT/SGPT) 42, Alkaline Phosphatase 216H, Total Creatine Kinase 111, C- Reactive Protein, Quantitative 0.9, Pro-B-Type Natriuretic Peptide 343H, Total Protein 6.4, Albumin 3.0L, Globulin 3.4, Albumin/Globulin Ratio 0.9L, Triglycerides Level 130, Cholesterol Level 180, LDL Cholesterol 100, HDL Bita sterol 59, Cholesterol/HDL Ratio 3.1L, Vitamin B12 Level 845, Folate 6.9L, Thyroid Stimulating Hormone (TSH) 3.229 Height (Feet): 5 Height (Inches): 2.00 Weight (Pounds): 160 General Appearance: no apparent distress, lethargic Cardiovascular: normal rate Respiratory/Chest: decreased breath sounds Abdomen: distended Hung Pennington MD Jan 08, 2020 19:31
[2020-01-08 20:00] VITALS: BP 162/89
[2020-01-08] MEDS: NovoLOG Insulin Flexpen SUBQ SCH (20:52)
[2020-01-08] MEDS: Levemir Flexpen SUBQ SCH (20:54)
[2020-01-08] MEDS: Atorvastatin 80mg tab ORAL SCH (20:55)
[2020-01-08 21:55] LABS: APPEARANCE,URINE CLEAR; BILIRUBIN, URINE NEGATIVE (NEGATIVE); COLOR,URINE PALE YELLOW; GLUCOSE, URINE (UA) 2+ (NEGATIVE); KETONES,URINE NEGATIVE (NEGATIVE); LEUKOCYTE ESTERASE ,URINE NEGATIVE (NEGATIVE); NITRITE,URINE NEGATIVE (NEGATIVE); PH,URINE 6.5 (4.5-8.0); PROTEIN,URINE 3+ (NEGATIVE); UROBILINOGEN,URINE NORMAL MG/DL (0.0-1.0)
[2020-01-09] VITALS: BP 155/81
[2020-01-09] MEDS: Morphine Sulfate 2mg/ml Inj(IV/IM USE ONLY) IVP PRN ×3 (01:41→18:56)
[2020-01-09 04:00] VITALS: BP 161/87
[2020-01-09] MEDS: NovoLOG Insulin Flexpen SUBQ SCH ×4 (05:56→21:00)
--- NOTE | 2020-01-09 07:12 | NUR ---
NURSE HAND-OFF REPORT: Important Events on Shift: Patient has been complaining of left arm pain, non-radiating, scale of 5-6. Morphine 2mg was given and warm compress provided. Patient Status: Patient is awake on bed in stable condition. Plan of care endorsed. RN made aware of UDS and urinalysis result. Diet: Renal, CCHO medium Pending Orders: none Pending Results/Labs: BMP, CBC, Uric, Mg, Phos, CMP and BTNP results Pending MD notification:none Latest Vital Signs: Temperature 99.0 , Pulse 85 , B/P 161 /87 , Respiratory Rate 19 , O2 SAT 98 , Room Air, O2 Flow Rate . Vital Sign Comment: stable EKG Rhythm: Sinus Rhythm Rhythm change?: N MD Notified?: - MD Response: Latest Flores Fall Score: 35 Fall Risk: Medium Risk Safety Measures: Call light Within Reach, Bed Alarm Zone 1, Side Rails Side Rails x2, Bed position Low and Locked. Fall Precautions: Yellow Socks Yellow Gown Door Sign Patient Fall Education Report given to LAVONNE Jeronimo.
--- NOTE | 2020-01-09 07:50 | NUR ---
NURSE NOTES: pt in bed resting, pt has Left arm pain that gets better with warm towels and morphine. AOx 4. pt has no SOB or chest pain. pt on pvc monitor no signs of cardiac or respiratory distress at this time. Bed is locked and in lowest position. Call light within reach. pt is having breakfast right now. Will continue to monitor pt.
[2020-01-09 08:00] VITALS: BP 161/92
[2020-01-09 08:36] LABS: BASOPHILS % (AUTO) 0.7 % (0.0-2.0); EOSINOPHILS % (AUTO) 3.9 % (0.0-3.0); HEMATOCRIT 27.6 % (42.0-52.0); HEMOGLOBIN 9.1 G/DL (14.2-18.0); LYMPHOCYTES % (AUTO) 13.7 % (20.0-45.0); MEAN CORPUSCULAR VOLUME 90 FL (80-99); MONOCYTES % (AUTO) 4.6 % (1.0-10.0); NEUTROPHILS % (AUTO) 77.1 % (45.0-75.0); PLATELET COUNT 178 K/UL (150-450); RED BLOOD COUNT 3.05 M/UL (4.70-6.10); RED CELL DISTRIBUTION WIDTH 13.5 % (11.6-14.8); WHITE BLOOD COUNT 6.9 K/UL (4.8-10.8)
[2020-01-09 08:40] LABS: PHOSPHORUS 4.2 MG/DL (2.5-4.9)
[2020-01-09] MEDS: Tamsulosin 0.4mg cap ORAL SCH ×2 (08:42→17:27)
[2020-01-09] MEDS: Aspirin Baby 81mg ORAL SCH (08:43)
[2020-01-09 08:45] LABS: ALBUMIN 2.9 G/DL (3.4-5.0); ALBUMIN/GLOBULIN RATIO 0.8 (1.0-2.7); BILIRUBIN,TOTAL 0.2 MG/DL (0.2-1.0); CALCIUM 8.3 MG/DL (8.5-10.1); CREATININE 3.9 MG/DL (0.55-1.30); POTASSIUM 5.3 MMOL/L (3.5-5.1)
[2020-01-09] MEDS: Heparin 5000 units/ml inj SUBQ SCH ×2 (08:53→21:22)
[2020-01-09] MEDS ORDERED: Sodium Polystyrene Sulfonate 15gm Powder ORAL SCH (09:15)
--- NOTE | 2020-01-09 09:23 | General Progress Note ---
Subjective Constitutional: Reports: weakness Allergies: Coded Allergies: PENICILLINS (Verified Allergy, Unknown, 01/07/20) All Systems: reviewed and negative except above Subjective calm in bed Objective Last 24 Hour Vital Signs Date Time Temp Pulse Resp B/P (MAP) Pulse Ox O2 Delivery O2 Flow Rate FiO2 01/09/20 08:49 85 161/92 01/09/20 08:48 85 161/92 01/09/20 08:00 98.2 85 18 161/92 (115) 98 01/09/20 04:00 99.0 85 19 161/87 (111) 98 01/09/20 04:00 76 01/09/20 00:00 98.5 87 20 155/81 (105) 98 01/09/20 00:00 85 01/08/20 21:14 83 162/89 01/08/20 21:00 Room Air 01/08/20 20:00 98.1 83 22 162/89 (113) 99 01/08/20 20:00 83 01/08/20 16:00 98.8 87 18 138/84 (102) 98 01/08/20 15:30 80 01/08/20 12:00 97.9 86 18 157/92 (113) 100 01/08/20 12:00 94 Intake and Output 01/08/20 01/09/20 19:00 07:00 Intake Total 600 ml 800 ml Balance 600 ml 800 ml Intake Oral 600 ml 800 ml # Voids 2 4 Laboratory Tests 01/08/20 20:49: POC Whole Blood Glucose 149H 01/08/20 21:40: Urine Color Pale yellow, Urine Appearance Clear, Urine pH 6.5, Urine Specific [place] 1.005, Urine Protein 3+H, Urine Glucose (UA) 2+H, Urine Ketones Negative, Urine Blood 1+H, Urine Nitrite Negative, Urine Bilirubin Negative, Urine Urobilinogen Normal, Urine Leukocyte Esterase Negative, Urine RBC 0-2H, Urine WBC 0-2, Urine Squamous Epithelial Cells None, Urine Bacteria None, Urine Opiates Screen Negative, Urine Barbiturates Screen Negative, Phencyclidine (PCP) Screen Negative, Urine Amphetamines Screen Negative, Urine Benzodiazepines Sc reen Negative, Urine Cocaine Screen Negative, Urine Marijuana (THC) Screen Negative 01/09/20 05:49: POC Whole Blood Glucose 108H 01/09/20 07:18: White Blood Count 6.9, Red Blood Count 3.05L, Hemoglobin 9.1L, Hematocrit 27.6L, Mean Corpuscular Volume 90, Mean Corpuscular Hemoglobin 29.9, Mean Corpuscular Hemoglobin Concent 33.1, Red Cell Distribution Width 13.5, Platelet Count 178, Mean Platelet Volume 14.7H, Neutrophils (%) (Auto) 77.1H, Lymphocytes (%) (Auto) 13.7L, Monocytes (%) (Auto) 4.6, Eosinophils (%) (Auto) 3.9H, Basophils (%) (Auto) 0.7, Sodium Level 137, Potassium Level 5.3H, Chloride Level 107, Carbon Dioxide Level 19L, Anion Gap 12, Blood Urea Nitrogen 47H, Creatinine 3.9H, Estimat Glomerular Filtration Rate 16.9, Glucose Level 100, Uric Acid 7.8H, Calcium Level 8.3L, Phosphorus Level 4.2, Magnesium Level 2.0, Total Bilirubin 0.2, Aspartate Amino Transf (AST/SGOT) 19, Alanine Aminotransferase (ALT/SGPT) 39, Alkaline Phosphatase 198H, C-Reactive Protein, Quantitative 0.7, Pro-B-Type Natriuretic Peptide 266H, Total Protein 6.7, Albumin 2.9L, Globulin 3.8, Albumin/Globulin Ratio 0.8L Height (Feet): 5 Height (Inches): 2.00 Weight (Pounds): 160 General Appearance: lethargic EENT: normal ENT inspection Neck: normal alignment Cardiovascular: normal peripheral pulses, normal rate, regular rhythm Respiratory/Chest: chest wall non-tender, lungs clear, normal breath sounds Abdomen: normal bowel sounds, non tender, soft Extremities: normal inspection Edema: no edema noted Arm (L), no edema noted Arm (R), no edema noted Leg (L), no edema noted Leg (R), no edema noted Pedal (L), no edema noted Pedal (R), no edema noted Generalized Neurologic: motor weakness Skin: normal pigmentation, warm/dry Assessment/Plan Problem List: (1) SOB (shortness of breath) ICD Codes: R06.02 - Shortness of breath SNOMED: 039916713 (2) HTN (hypertension) ICD Codes: I10 - Essential (primary) hypertension SNOMED: 19675248 (3) Diabetes ICD Codes: E11.9 - Type 2 diabetes mellitus without complications SNOMED: 38914763 (4) Malnutrition ICD Codes: E46 - Unspecified protein-calorie malnutrition SNOMED: 61645279 (5) Weak ICD Codes: R53.1 - Weakness SNOMED: 28634619 (6) Anemia ICD Codes: D64.9 - Anemia, unspecified SNOMED: 621099026 (7) Chest pain ICD Codes: R07.9 - Chest pain, unspecified SNOMED: 09166857 (8) KATHARINE (acute kidney injury) ICD Codes: N17.9 - Acute kidney failure, unspecified SNOMED: 85109332, 5267143 Status: unchanged Assessment/Plan: pain control cardio neph f/u cbc bmp am Santiago Esqueda DO Jan 09, 2020 09:23
[2020-01-09] MEDS: Docusate 100mg cap ORAL SCH ×3 (10:21→17:32)
[2020-01-09 11:30] VITALS: BP 158/91
--- NOTE | 2020-01-09 12:53 | Nephrology Progress Note ---
Assessment/Plan Problem List: (1) KATHARINE (acute kidney injury) (2) Anemia (3) Diabetes (4) HTN (hypertension) Assessment Acute renal failure, possible underlying chronic kidney disease Chest pain, coronary artery disease Anemia Hypertension Diabetes mellitus Plan January 08: Labs reviewed. Serum creatinine unchanged. Potassium slightly elevated. Kayexalate ordered. Other abnormal electrolytes addressed. Previously: Magnesium supplement IV Urine studies Urine analysis Urine tox screen Flomax Kidney ultrasound, normal, negative hydronephrosis Anemia work-up, noted Keep the blood pressure and blood sugar in check Avoid nephrotoxic's Per orders Subjective ROS Limited/Unobtainable: No Constitutional: Reports: malaise Objective Objective Last 24 Hour Vital Signs Date Time Temp Pulse Resp B/P (MAP) Pulse Ox O2 Delivery O2 Flow Rate FiO2 01/09/20 11:30 96.6 77 20 158/91 (113) 99 01/09/20 09:20 98.2 01/09/20 09:00 Room Air 01/09/20 08:49 85 161/92 01/09/20 08:48 85 161/92 01/09/20 08:00 84 01/09/20 08:00 98.2 85 18 161/92 (115) 98 01/09/20 04:00 99.0 85 19 161/87 (111) 98 01/09/20 04:00 76 01/09/20 00:00 98.5 87 20 155/81 (105) 98 01/09/20 00:00 85 01/08/20 21:14 83 162/89 01/08/20 21:00 Room Air 01/08/20 20:00 98.1 83 22 162/89 (113) 99 01/08/20 20:00 83 01/08/20 16:00 98.8 87 18 138/84 (102) 98 01/08/20 15:30 80 Intake and Output 01/08/20 01/09/20 19:00 07:00 Intake Total 600 ml 800 ml Balance 600 ml 800 ml Intake Oral 600 ml 800 ml # Voids 2 4 Current Medications Medications (Trade) Dose Ordered Sig/Jose Enrique Route PRN Reason Start Time Stop Time Status Last Admin Dose Admin Acetaminophen (Tylenol) 650 mg Q6H PRN ORAL For Pain 01/07/20 14:15 02/06/20 14:14 01/09/20 08:50 Amlodipine Besylate (Norvasc) 10 mg DAILY ORAL 01/08/20 09:00 02/07/20 08:59 01/09/20 08:48 Aspirin (ASA) 81 mg DAILY ORAL 01/08/20 09:00 02/22/20 08:59 01/09/20 08:43 Atorvastatin Calcium (Lipitor) 80 mg BEDTIME ORAL 01/07/20 21:00 04/06/20 20:59 01/08/20 20:55 Clonidine HCl (Catapres Tab) 0.1 mg EVERY 8 HOURS ORAL 01/09/20 14:00 04/08/20 13:59 Clonidine HCl (Catapres Tab) 0.1 mg Q4H PRN ORAL sbp>170 01/07/20 14:00 04/06/20 13:59 01/07/20 18:16 Dextrose (Dextrose 50%) 25 ml Q30M PRN IV Hypoglycemia 01/07/20 14:30 04/06/20 14:29 Dextrose (Dextrose 50%) 50 ml Q30M PRN IV Hypoglycemia 01/07/20 14:30 04/06/20 14:29 Docusate Sodium (Colace) 100 mg THREE TIMES A DAY ORAL 01/09/20 10:00 02/08/20 09:59 01/09/20 10:21 Heparin Sodium (Porcine) (Heparin 5000 units/ml) 5,000 units EVERY 12 HOURS SUBQ 01/07/20 21:00 02/21/20 20:59 01/09/20 08:53 Insulin Aspart (NovoLOG) BEFORE MEALS AND HS SUBQ 01/08/20 21:00 04/07/20 20:59 01/08/20 20:52 Insulin Detemir (Levemir) 6 units BEDTIME SUBQ 01/07/20 21:00 04/06/20 20:59 01/08/20 20:54 Metoprolol Tartrate (Lopressor) 25 mg Q12HR ORAL 01/08/20 21:00 04/07/20 20:59 01/09/20 08:49 Morphine Sulfate (Morphine Sulfate) 2 mg Q4H PRN IVP For Pain 01/07/20 20:30 01/14/20 20:29 01/09/20 05:53 Nitroglycerin (Ntg) 0.4 mg Q5M PRN SL Prn Chest Pain 01/07/20 21:20 02/06/20 21:19 01/07/20 21:40 Pantoprazole (Protonix) 40 mg EVERY 12 HOURS ORAL 01/09/20 10:00 02/08/20 09:59 01/09/20 10:22 Tamsulosin HCl (Flomax) 0.4 mg BID ORAL 01/08/20 18:00 02/07/20 17:59 01/09/20 08:42 Zolpidem Tartrate (Ambien) 5 mg HSPRN PRN ORAL Insomnia 01/07/20 14:15 01/14/20 14:14 Laboratory Tests 01/08/20 20:49: POC Whole Blood Glucose 149H 01/08/20 21:40: Urine Color Pale yellow, Urine Appearance Clear, Urine pH 6.5, Urine Specific [place] 1.005, Urine Protein 3+H, Urine Glucose (UA) 2+H, Urine Ketones Negative, Urine Blood 1+H, Urine Nitrite Negative, Urine Bilirubin Negative, Urine Urobilinogen Normal, Urine Leukocyte Esterase Negative, Urine RBC 0-2H, Urine WBC 0-2, Urine Squamous Epithelial Cells None, Urine Bacteria None, Urine Opiates Screen Negative, Urine Barbiturates Screen Negative, Phencyclidine (PCP) Screen Negative, Urine Amphetamines Screen Negative, Urine Benzodiazepines Screen Negative, Urine Cocaine Screen Negative, Urine Marijuana (THC) Screen Negative 01/09/20 05:49: POC Whole Blood Glucose 108H 01/09/20 07:18: White Blood Count 6.9, Red Blood Count 3.05L, Hemoglobin 9.1L, Hematocrit 27.6L, Mean Corpuscular Volume 90, Mean Corpuscular Hemoglobin 29.9, Mean Corpuscular Hemoglobin Concent 33.1, Red Cell Distribution Width 13.5, Platelet Count 178, Mean Platelet Volume 14.7H, Neutrophils (%) (Auto) 77.1H, Lymphocytes (%) (Auto) 13.7L, Monocytes (%) (Auto) 4.6, Eosinophils (%) (Auto) 3.9H, Basophils (%) (Auto) 0.7, Sodium Level 137, Potassium Level 5.3H, Chloride Level 107, Carbon Dioxide Level 19L, Anion Gap 12, Blood Urea Nitrogen 47H, Creatinine 3.9H, Estimat Glomerular Filtration Rate 16.9, Glucose Level 100, Uric Acid 7.8H, Calcium Level 8.3L, Phosphorus Level 4.2, Magnesium Level 2.0, Total Bilirubin 0.2, Aspartate Amino Transf (AST/SGOT) 19, Alanine Aminotransferase (ALT/SGPT) 39, Alkaline Phosphatase 198H, C-Reactive Protein, Quantitative 0.7, Pro-B-Type Natriuretic Peptide 266H, Total Protein 6.7, Albumin 2.9L, Globulin 3.8, Albumin/Globulin Ratio 0.8L 01/09/20 12:47: POC Whole Blood Glucose 112H Height (Feet): 5 Height (Inches): 2.00 Weight (Pounds): 160 General Appearance: no apparent distress Cardiovascular: normal rate Respiratory/Chest: decreased breath sounds Abdomen: distended Objective No change Hung Pennington MD Jan 09, 2020 12:53
--- NOTE | 2020-01-09 13:03 | General Progress Note ---
Subjective Allergies: Coded Allergies: PENICILLINS (Verified Allergy, Unknown, 01/07/20) All Systems: reviewed and negative except above Subjective events noted interval notes reviewed Item Value Date Time Bedside Blood Glucose 112 mg/dl 01/09/20 1130 Bedside Blood Glucose 108 mg/dl 01/09/20 0624 Bedside Blood Glucose 143 mg/dl H 01/08/20 2100 Objective Last 24 Hour Vital Signs Date Time Temp Pulse Resp B/P (MAP) Pulse Ox O2 Delivery O2 Flow Rate FiO2 01/09/20 11:30 96.6 77 20 158/91 (113) 99 01/09/20 09:20 98.2 01/09/20 09:00 Room Air 01/09/20 08:49 85 161/92 01/09/20 08:48 85 161/92 01/09/20 08:00 84 01/09/20 08:00 98.2 85 18 161/92 (115) 98 01/09/20 04:00 99.0 85 19 161/87 (111) 98 01/09/20 04:00 76 01/09/20 00:00 98.5 87 20 155/81 (105) 98 01/09/20 00:00 85 01/08/20 21:14 83 162/89 01/08/20 21:00 Room Air 01/08/20 20:00 98.1 83 22 162/89 (113) 99 01/08/20 20:00 83 01/08/20 16:00 98.8 87 18 138/84 (102) 98 01/08/20 15:30 80 Intake and Output 01/08/20 01/09/20 19:00 07:00 Intake Total 600 ml 800 ml Balance 600 ml 800 ml Intake Oral 600 ml 800 ml # Voids 2 4 Laboratory Tests 01/08/20 20:49: POC Whole Blood Glucose 149H 01/08/20 21:40: Urine Color Pale yellow, Urine Appearance Clear, Urine pH 6.5, Urine Specific [place] 1.005, Urine Protein 3+H, Urine Glucose (UA) 2+H, Urine Ketones Negative, Urine Blood 1+H, Urine Nitrite Negative, Urine Bilirubin Negative, Urine Urobilinogen Normal, Urine Leukocyte Esterase Negative, Urine RBC 0-2H, Urine WBC 0-2, Urine Squamous Epithelial Cells None, Urine Bacteria None, Urine Opiates Screen Negative, Urine Barbiturates Screen Negative, Phencyclidine (PCP) Screen Negative, Urine Amphetamines Screen Negative, Urine Benzodiazepines Screen Negative, Urine Cocaine Screen Negative, Urine Marijuana (THC) Screen Negative 01/09/20 05:49: POC Whole Blood Glucose 108H 01/09/20 07:18: White Blood Count 6.9, Red Blood Count 3.05L, Hemoglobin 9.1L, Hematocrit 27.6L, Mean Corpuscular Volume 90, Mean Corpuscular Hemoglobin 29.9, Mean Corpuscular Hemoglobin Concent 33.1, Red Cell Distribution Width 13.5, Platelet Count 178, Mean Platelet Volume 14.7H, Neutrophils (%) (Auto) 77.1H, Lymphocytes (%) (Auto) 13.7L, Monocytes (%) (Auto) 4.6, Eosinophils (%) (Auto) 3.9H, Basophils (%) (Auto) 0.7, Sodium Level 137, Potassium Level 5.3H, Chloride Level 107, Carbon Dioxide Level 19L, Anion Gap 12, Blood Urea Nitrogen 47H, Creatinine 3.9H, Estimat Glomerular Filtration Rate 16.9, Glucose Level 100, Uric Acid 7.8H, Calcium Level 8.3L, Phosphorus Level 4.2, Magnesium Level 2.0, Total Bilirubin 0.2, Aspartate Amino Transf (AST/SGOT) 19, Alanine Aminotransferase (ALT/SGPT) 39, Alkaline Phosphatase 198H, C-Reactive Protein, Quantitative 0.7, Pro-B-Type Natriuretic Peptide 266H, Total Protein 6.7, Albumin 2.9L, Globulin 3.8, Albumin/Globulin Ratio 0.8L 01/09/20 12:47: POC Whole Blood Glucose 112H Height (Feet): 5 Height (Inches): 2.00 Weight (Pounds): 160 General Appearance: no apparent distress Neck: normal alignment Cardiovascular: normal rate Respiratory/Chest: lungs clear Abdomen: normal bowel sounds Pelvis: normal external exam Objective Current Medications Medications (Trade) Dose Ordered Sig/Jose Enrique Route PRN Reason Start Time Stop Time Status Last Admin Dose Admin Acetaminophen (Tylenol) 650 mg Q6H PRN ORAL For Pain 01/07/20 14:15 02/06/20 14:14 01/09/20 08:50 Amlodipine Besylate (Norvasc) 10 mg DAILY ORAL 01/08/20 09:00 02/07/20 08:59 01/09/20 08:48 Aspirin (ASA) 81 mg DAILY ORAL 01/08/20 09:00 02/22/20 08:59 01/09/20 08:43 Atorvastatin Calcium (Lipitor) 80 mg BEDTIME ORAL 01/07/20 21:00 04/06/20 20:59 01/08/20 20:55 Clonidine HCl (Catapres Tab) 0.1 mg EVERY 8 HOURS ORAL 01/09/20 14:00 04/08/20 13:59 Clonidine HCl (Catapres Tab) 0.1 mg Q4H PRN ORAL sbp>170 01/07/20 14:00 04/06/20 13:59 01/07/20 18:16 Dextrose (Dextrose 50%) 25 ml Q30M PRN IV Hypoglycemia 01/07/20 14:30 04/06/20 14:29 Dextrose (Dextrose 50%) 50 ml Q30M PRN IV Hypoglycemia 01/07/20 14:30 04/06/20 14:29 Docusate Sodium (Colace) 100 mg THREE TIMES A DAY ORAL 01/09/20 10:00 02/08/20 09:59 01/09/20 10:21 Heparin Sodium (Porcine) (Heparin 5000 units/ml) 5,000 units EVERY 12 HOURS SUBQ 01/07/20 21:00 02/21/20 20:59 01/09/20 08:53 Insulin Aspart (NovoLOG) BEFORE MEALS AND HS SUBQ 01/08/20 21:00 04/07/20 20:59 01/08/20 20:52 Insulin Detemir (Levemir) 6 units BEDTIME SUBQ 01/07/20 21:00 04/06/20 20:59 01/08/20 20:54 Metoprolol Tartrate (Lopressor) 25 mg Q12HR ORAL 01/08/20 21:00 04/07/20 20:59 01/09/20 08:49 Morphine Sulfate (Morphine Sulfate) 2 mg Q4H PRN IVP For Pain 01/07/20 20:30 01/14/20 20:29 01/09/20 05:53 Nitroglycerin (Ntg) 0.4 mg Q5M PRN SL Prn Chest Pain 01/07/20 21:20 02/06/20 21:19 10/30/20 21:40 Pantoprazole (Protonix) 40 mg EVERY 12 HOURS ORAL 01/09/20 10:00 02/08/20 09:59 01/09/20 10:22 Tamsulosin HCl (Flomax) 0.4 mg BID ORAL 01/08/20 18:00 02/07/20 17:59 01/09/20 08:42 Zolpidem Tartrate (Ambien) 5 mg HSPRN PRN ORAL Insomnia 01/07/20 14:15 01/14/20 14:14 Assessment/Plan Problem List: (1) Diabetes ICD Codes: E11.9 - Type 2 diabetes mellitus without complications SNOMED: 51818742 (2) Chest pain ICD Codes: R07.9 - Chest pain, unspecified SNOMED: 30551095 (3) KATHARINE (acute kidney injury) ICD Codes: N17.9 - Acute kidney failure, unspecified SNOMED: 15881764, 9552910 Status: unchanged Assessment/Plan: continue Levemir 6 units qhs continue Novolog sliding scale ac / hs hypoglycemic protocol in order Sreedhar Aguirre MD Jan 09, 2020 13:03
[2020-01-09 16:00] VITALS: BP 133/88
--- NOTE | 2020-01-09 18:12 | Cardiac Electrophysiology PN ---
Assessment/Plan Assessment/Plan 1. Chest pain and left arm pain and history of coronary artery disease and prior stent. Awaiting records from [facility] Ruled out for OR. In the meantime, continue aspirin and Lipitor 80 mg daily and Lopressor 25 bid. EF 65%. SChedule for stress test in am 2. Hypertension. Avoid YOUSUF inhibitor and angiotensin-receptor lucas in view of creatinine of 4.5. On amlodipine 10 mg daily, p.r.n. clonidine and metoprolol 25 mg b.i.d. 4. Hyperlipidemia, on Lipitor 80 mg daily. 5. Diabetes, on insulin. 6. History of prior CVA in April 2018. 7. Acute renal failure, creatinine of 4.5. Cr now is 3.5 DW RN Subjective Subjective No CP or SOB.In SR on tele Objective Last 24 Hour Vital Signs Date Time Temp Pulse Resp B/P (MAP) Pulse Ox O2 Delivery O2 Flow Rate FiO2 01/09/20 14:00 172/93 01/09/20 12:00 77 01/09/20 11:30 96.6 77 20 158/91 (113) 99 01/09/20 09:20 98.2 01/09/20 09:00 Room Air 01/09/20 08:49 85 161/92 01/09/20 08:48 85 161/92 01/09/20 08:00 84 01/09/20 08:00 98.2 85 18 161/92 (115) 98 01/09/20 04:00 99.0 85 19 161/87 (111) 98 01/09/20 04:00 76 01/09/20 00:00 98.5 87 20 155/81 (105) 98 01/09/20 00:00 85 01/08/20 21:14 83 162/89 01/08/20 21:00 Room Air 01/08/20 20:00 98.1 83 22 162/89 (113) 99 01/08/20 20:00 83 Intake and Output 01/08/20 01/09/20 19:00 07:00 Intake Total 600 ml 800 ml Balance 600 ml 800 ml Intake Oral 600 ml 800 ml # Voids 2 4 Laboratory Tests Test 01/08/20 20:49 01/08/20 21:40 01/09/20 05:49 01/09/20 07:18 POC Whole Blood Glucose 149 MG/DL (74-106) H 108 MG/DL (74-106) H Urine Color Pale yellow Urine Appearance Clear Urine pH 6.5 (4.5-8.0) Urine Specific [place] 1.005 (1.005-1.035) Urine Protein 3+ (NEGATIVE) H Urine Glucose (UA) 2+ (NEGATIVE) H Urine Ketones Negative (NEGATIVE) Urine Blood 1+ (NEGATIVE) H Urine Nitrite Negative (NEGATIVE) Urine Bilirubin Negative (NEGATIVE) Urine Urobilinogen Normal MG/DL (0.0-1.0) Urine Leukocyte Esterase Negative (NEGATIVE) Urine RBC 0-2 /HPF (0 - 0) H Urine WBC 0-2 /HPF (0 - 0) Urine Squamous Epithelial Cells None /LPF (NONE/OCC) Urine Bacteria None /HPF (NONE) Urine Opiates Screen Negative (NEGATIVE) Urine Barbiturates Screen Negative (NEGATIVE) Phencyclidine (PCP) Screen Negative (NEGATIVE) Urine Amphetamines Screen Negative (NEGATIVE) Urine Benzodiazepines Screen Negative (NEGATIVE) Urine Cocaine Screen Negative (NEGATIVE) Urine Marijuana (THC) Screen Negative (NEGATIVE) White Blood Count 6.9 K/UL (4.8-10.8) Red Blood Count 3.05 M/UL (4.70-6.10) L Hemoglobin 9.1 G/DL (14.2-18.0) L Hematocrit 27.6 % (42.0-52.0) L Mean Corpuscular Volume 90 FL (80-99) Mean Corpuscular Hemoglobin 29.9 PG (27.0-31.0) Mean Corpuscular Hemoglobin Concent 33.1 G/DL (32.0-36.0) Red Cell Distribution Width 13.5 % (11.6-14.8) Platelet Count 178 K/UL (150-450) Mean Platelet Volume 14.7 FL (6.5-10.1) H Neutrophils (%) (Auto) 77.1 % (45.0-75.0) H Lymphocytes (%) (Auto) 13.7 % (20.0-45.0) L Monocytes (%) (Auto) 4.6 % (1.0-10.0) Eosinophils (%) (Auto) 3.9 % (0.0-3.0) H Basophils (%) (Auto) 0.7 % (0.0-2.0) Sodium Level 137 MMOL/L (136-145) Potassium Level 5.3 MMOL/L (3.5-5.1) H Chloride Level 107 MMOL/L (98-107) Carbon Dioxide Level 19 MMOL/L (21-32) L Anion Gap 12 mmol/L (5-15) Blood Urea Nitrogen 47 mg/dL (7-18) H Creatinine 3.9 MG/DL (0.55-1.30) H Estimat Glomerular Filtration Rate 16.9 mL/min (>60) Glucose Level 100 MG/DL (74-106) Uric Acid 7.8 MG/DL (2.6-7.2) H Calcium Level 8.3 MG/DL (8.5-10.1) L Phosphorus Level 4.2 MG/DL (2.5-4.9) Magnesium Level 2.0 MG/DL (1.8-2.4) Total Bilirubin 0.2 MG/DL (0.2-1.0) Aspartate Amino Transf (AST/SGOT) 19 U/L (15-37) Alanine Aminotransferase (ALT/SGPT) 39 U/L (12-78) Alkaline Phosphatase 198 U/L (46-116) H C-Reactive Protein, Quantitative 0.7 mg/dL (0.00-0.90) Pro-B-Type Natriuretic Peptide 266 pg/mL (0-125) H Total Protein 6.7 G/DL (6.4-8.2) Albumin 2.9 G/DL (3.4-5.0) L Globulin 3.8 g/dL Albumin/Globulin Ratio 0.8 (1.0-2.7) L Test 01/09/20 12:47 01/09/20 17:29 POC Whole Blood Glucose 112 MG/DL (74-106) H 126 MG/DL (74-106) H Microbiology Date/Time Source Procedure Growth Status 01/07/20 09:50 Nasopharynx SARS-CoV-2 RdRp Gene Assay - Final Complete Objective HEAD AND NECK: No JVD. LUNGS: Clear. CARDIOVASCULAR: Regular S1 and S2 with no gallop or murmur. ABDOMEN: Soft. EXTREMITIES: No pitting edema. Phan Pereira MD Jan 09, 2020 18:12
[2020-01-09] MEDS ORDERED: Lexiscan 0.4mg/5ml syringe IV PRN (18:15)
--- NOTE | 2020-01-09 19:31 | NUR ---
NURSE NOTES: Received report from LAVONNE Jeronimo. Patient is asleep, alert and oriented x 4. cafeteria monitor is i place, shows sinus rhythm with no chest pain reported. On room air, sating 98%.. On renal diet, CCHO (Medium). IV site is on right hand g-18 saline lock and right AC g-18 saline lock that is patent and intact. Safety measures are in place, bed in lowest and locked position, call light button and bedside table within reach, instructed to call for any assistance needed. Will continue plan of care.
--- NOTE | 2020-01-09 19:47 | NUR ---
NURSE HAND-OFF REPORT: Important Events on Shift: monitor pt pain, He will have Laurie scan Patient Status: full Diet: Pending Orders: Pending Results/Labs: Pending MD notification: Latest Vital Signs: Temperature 97.7 , Pulse 75 , B/P 133 /88 , Respiratory Rate 19 , O2 SAT 98 , Room Air, O2 Flow Rate . Vital Sign Comment: EKG Rhythm: Sinus Rhythm Rhythm change?: N MD Notified?: - MD Response: Latest Flores Fall Score: 35 Fall Risk: Medium Risk Safety Measures: Call light Within Reach, Bed Alarm Zone 1, Side Rails Side Rails x1, Bed position Low and Locked. Fall Precautions: gets up on his own Yellow Socks y Yellow Gown y Door Sign Patient Fall Education Report given to Starla/RN.
[2020-01-09 20:00] VITALS: BP 144/85
[2020-01-09] MEDS: Atorvastatin 80mg tab ORAL SCH (21:21)
[2020-01-09] MEDS: Levemir Flexpen SUBQ SCH (21:23)
[2020-01-10] VITALS: BP 152/88
[2020-01-10 04:00] VITALS: BP 132/86
[2020-01-10] MEDS: NovoLOG Insulin Flexpen SUBQ SCH ×4 (06:30→21:00)
--- NOTE | 2020-01-10 06:33 | General Progress Note ---
Subjective Allergies: Coded Allergies: PENICILLINS (Verified Allergy, Unknown, 01/07/20) All Systems: reviewed and negative except above Subjective events noted interval notes reviewed glucose values are stable Item Value Date Time Bedside Blood Glucose 108 mg/dl 01/09/203 Bedside Blood Glucose 126 mg/dl H 01/09/20 1630 Bedside Blood Glucose 112 mg/dl 01/09/20 1130 Bedside Blood Glucose 108 mg/dl 01/09/20 0624 Objective Last 24 Hour Vital Signs Date Time Temp Pulse Resp B/P (MAP) Pulse Ox O2 Delivery O2 Flow Rate FiO2 01/10/20 04:00 77 01/10/20 04:00 98.1 84 19 132/86 (101) 98 01/10/20 00:01 152/88 01/10/20 00:00 81 01/10/20 00:00 98.5 72 20 152/88 (109) 98 01/09/20 21:21 80 144/85 01/09/20 21:00 Room Air 01/09/20 20:00 98.8 80 18 144/85 (104) 95 01/09/20 20:00 81 01/09/20 16:00 75 01/09/20 16:00 97.7 84 19 133/88 (103) 98 01/09/20 14:00 172/93 01/09/20 12:00 77 01/09/20 11:30 96.6 77 20 158/91 (113) 99 01/09/20 09:20 98.2 01/09/20 09:00 Room Air 01/09/20 08:49 85 161/92 01/09/20 08:48 85 161/92 01/09/20 08:00 84 01/09/20 08:00 98.2 85 18 161/92 (115) 98 Intake and Output 01/09/20 01/10/20 19:00 07:00 Intake Total 360 ml Balance 360 ml Intake Oral 360 ml # Voids 2 Laboratory Tests 01/09/20 07:18: White Blood Count 6.9, Red Blood Count 3.05L, Hemoglobin 9.1L, Hematocrit 27.6L, Mean Corpuscular Volume 90, Mean Corpuscular Hemoglobin 29.9, Mean Corpuscular Hemoglobin Concent 33.1, Red Cell Distribution Width 13.5, Platelet Count 178, Mean Platelet Volume 14.7H, Neutrophils (%) (Auto) 77.1H, Lymphocytes (%) (Auto) 13.7L, Monocytes (%) (Auto) 4.6, Eosinophils (%) (Auto) 3.9H, Basophils (%) (Auto) 0.7, Sodium Level 137, Potassium Level 5.3H, Chloride Level 107, Carbon Dioxide Level 19L, Anion Gap 12, Blood Urea Nitrogen 47H, Creatinine 3.9H, Estimat Glomerular Filtration Rate 16.9, Glucose Level 100, Uric Acid 7.8H, Calcium Level 8.3L, Phosphorus Level 4.2, Magnesium Level 2.0, Total Bilirubin 0.2, Aspartate Amino Transf (AST/SGOT) 19, Alanine Aminotransferase (ALT/SGPT) 39, Alkaline Phosphatase 198H, C-Reactive Protein, Quantitative 0.7, Pro-B-Type Natriuretic Peptide 266H, Total Protein 6.7, Albumin 2.9L, Globulin 3.8, Albumin/Globulin Ratio 0.8L 01/09/20 12:47: POC Whole Blood Glucose 112H 01/09/20 17:29: POC Whole Blood Glucose 126H 01/10/20 06:13: POC Whole Blood Glucose 100 Height (Feet): 5 Height (Inches): 2.00 Weight (Pounds): 160 General Appearance: no apparent distress Neck: normal alignment Cardiovascular: normal rate Respiratory/Chest: lungs clear Abdomen: non tender Pelvis: normal external exam Objective Current Medications Medications (Trade) Dose Ordered Sig/Jose Enrique Route PRN Reason Start Time Stop Time Status Last Admin Dose Admin Acetaminophen (Tylenol) 650 mg Q6H PRN ORAL For Pain 01/07/20 14:15 02/06/20 14:14 01/10/20 04:40 Amlodipine Besylate (Norvasc) 10 mg DAILY ORAL 01/08/20 09:00 02/07/20 08:59 01/09/20 08:48 Aspirin (ASA) 81 mg DAILY ORAL 01/08/20 09:00 02/22/20 08:59 01/09/20 08:43 Atorvastatin Calcium (Lipitor) 80 mg BEDTIME ORAL 01/07/20 21:00 04/06/20 20:59 01/09/20 21:21 Clonidine HCl (Catapres Tab) 0.1 mg Q4H PRN ORAL sbp>170 01/07/20 14:00 04/06/20 13:59 01/07/20 18:16 Clonidine HCl (Catapres Tab) 0.1 mg Q8H ORAL 01/10/20 00:00 04/09/20 00:00 01/10/20 00:01 Dextrose (Dextrose 50%) 25 ml Q30M PRN IV Hypoglycemia 01/07/20 14:30 04/06/20 14:29 Dextrose (Dextrose 50%) 50 ml Q30M PRN IV Hypoglycemia 01/07/20 14:30 04/06/20 14:29 Docusate Sodium (Colace) 100 mg THREE TIMES A DAY ORAL 01/09/20 10:00 02/08/20 09:59 01/09/20 17:32 Heparin Sodium (Porcine) (Heparin 5000 units/ml) 5,000 units EVERY 12 HOURS SUBQ 01/07/20 21:00 02/21/20 20:59 01/09/20 21:22 Insulin Aspart (NovoLOG) BEFORE MEALS AND HS SUBQ 01/08/20 21:00 04/07/20 20:59 01/08/20 20:52 Insulin Detemir (Levemir) 6 units BEDTIME SUBQ 01/07/20 21:00 04/06/20 20:59 01/09/20 21:23 Metoprolol Tartrate (Lopressor) 25 mg Q12HR ORAL 01/08/20 21:00 04/07/20 20:59 01/09/20 21:21 Morphine Sulfate (Morphine Sulfate) 2 mg Q4H PRN IVP For Pain 01/07/20 20:30 01/14/20 20:29 01/09/20 18:56 Nitroglycerin (Ntg) 0.4 mg Q5M PRN SL Prn Chest Pain 01/07/20 21:20 02/06/20 21:19 01/07/20 21:40 Pantoprazole (Protonix) 40 mg EVERY 12 HOURS ORAL 01/09/20 10:00 02/08/20 09:59 01/09/20 21:21 Regadenoson (Lexiscan) 0.4 mg ONCE PRN IV STRESS TEST 01/09/20 18:15 01/11/20 23:59 Tamsulosin HCl (Flomax) 0.4 mg BID ORAL 01/08/20 18:00 02/07/20 17:59 01/09/20 17:27 Zolpidem Tartrate (Ambien) 5 mg HSPRN PRN ORAL Insomnia 01/07/20 14:15 01/14/20 14:14 Assessment/Plan Problem List: (1) Diabetes ICD Codes: E11.9 - Type 2 diabetes mellitus without complications SNOMED: 38753357 (2) Chest pain ICD Codes: R07.9 - Chest pain, unspecified SNOMED: 28771469 (3) KATHARINE (acute kidney injury) ICD Codes: N17.9 - Acute kidney failure, unspecified SNOMED: 54430644, 7535277 Status: unchanged Assessment/Plan: continue Levemir 6 units qhs continue Novolog sliding scale ac / hs hypoglycemic protocol in order Sreedhar Aguirre MD Jan 10, 2020 06:33
--- NOTE | 2020-01-10 07:19 | NUR ---
NURSE HAND-OFF REPORT: Important Events on Shift: Patient has been complining of left arm pain, scale of 6-8. Tylenol 650 mg was given. Patient Status: Patient is awake, in stable condition. Plan of care endorsed. Diet: Renal diet, but on NPO post midnight. Pending Orders: LEXISCAN & NM Myocardial perfusion with ejection fraction today Pending Results/Labs:CBC, Uric, Magnesium, phos and CMP results that was done this morning Pending MD notification:none Latest Vital Signs: Temperature 98.1 , Pulse 84 , B/P 132 /86 , Respiratory Rate 19 , O2 SAT 98 , Room Air, O2 Flow Rate . Vital Sign Comment: stable EKG Rhythm: Sinus Rhythm Rhythm change?: N MD Notified?: - MD Response: Latest Flores Fall Score: 35 Fall Risk: Medium Risk Safety Measures: Call light Within Reach, Bed Alarm Zone 1, Side Rails Side Rails x2, Bed position Low and Locked. Fall Precautions: Yellow Socks Yellow Gown Door Sign Patient Fall Education Report given to LAVONNE Jeronimo.
--- NOTE | 2020-01-10 07:32 | NUR ---
NURSE NOTES: pt in bed L arm is hurting no SOB no chest pain. pt is on awake overnight monitor no cardiac or respiratory distress. Bed is locked and in lowest position. Call light within reach. NPO for cardiac test this morning. Iv site intact and patent. Will continue to monitor.
[2020-01-10 08:00] VITALS: BP 131/80
[2020-01-10] MEDS: Morphine Sulfate 2mg/ml Inj(IV/IM USE ONLY) IVP PRN (08:15)
[2020-01-10] MEDS: Tamsulosin 0.4mg cap ORAL SCH ×2 (08:20→18:00)
[2020-01-10] MEDS: Docusate 100mg cap ORAL SCH ×3 (08:21→18:00)
[2020-01-10] MEDS: Aspirin Baby 81mg ORAL SCH (08:21)
[2020-01-10] MEDS: Heparin 5000 units/ml inj SUBQ SCH ×2 (08:23→21:21)
[2020-01-10 09:11] LABS: BASOPHILS % (AUTO) 1.2 % (0.0-2.0); EOSINOPHILS % (AUTO) 4.1 % (0.0-3.0); HEMATOCRIT 27.2 % (42.0-52.0); HEMOGLOBIN 8.8 G/DL (14.2-18.0); LYMPHOCYTES % (AUTO) 17.3 % (20.0-45.0); MEAN CORPUSCULAR VOLUME 90 FL (80-99); MONOCYTES % (AUTO) 5.7 % (1.0-10.0); NEUTROPHILS % (AUTO) 71.8 % (45.0-75.0); PLATELET COUNT 171 K/UL (150-450); RED BLOOD COUNT 3.02 M/UL (4.70-6.10); RED CELL DISTRIBUTION WIDTH 13.1 % (11.6-14.8); WHITE BLOOD COUNT 5.4 K/UL (4.8-10.8)
[2020-01-10 09:42] LABS: ALBUMIN 2.7 G/DL (3.4-5.0); ALBUMIN/GLOBULIN RATIO 0.7 (1.0-2.7); BILIRUBIN,TOTAL 0.2 MG/DL (0.2-1.0); CALCIUM 8.1 MG/DL (8.5-10.1); CREATININE 3.9 MG/DL (0.55-1.30); PHOSPHORUS 4.8 MG/DL (2.5-4.9); POTASSIUM 5.2 MMOL/L (3.5-5.1)
--- NOTE | 2020-01-10 10:41 | General Progress Note ---
Subjective ROS Limited/Unobtainable: Yes Allergies: Coded Allergies: PENICILLINS (Verified Allergy, Unknown, 01/07/20) Objective Last 24 Hour Vital Signs Date Time Temp Pulse Resp B/P (MAP) Pulse Ox O2 Delivery O2 Flow Rate FiO2 01/10/20 08:22 73 131/80 01/10/20 08:21 131/80 01/10/20 04:00 77 01/10/20 04:00 98.1 84 19 132/86 (101) 98 01/10/20 00:01 152/88 01/10/20 00:00 81 01/10/20 00:00 98.5 72 20 152/88 (109) 98 01/09/20 21:21 80 144/85 01/09/20 21:00 Room Air 01/09/20 20:00 98.8 80 18 144/85 (104) 95 01/09/20 20:00 81 01/09/20 16:00 75 01/09/20 16:00 97.7 84 19 133/88 (103) 98 01/09/20 14:00 172/93 01/09/20 12:00 77 01/09/20 11:30 96.6 77 20 158/91 (113) 99 Intake and Output 01/09/20 01/10/20 19:00 07:00 Intake Total 360 ml 1000 ml Balance 360 ml 1000 ml Intake Oral 360 ml 1000 ml # Voids 2 5 Laboratory Tests 01/09/20 12:47: POC Whole Blood Glucose 112H 01/09/20 17:29: POC Whole Blood Glucose 126H 01/10/20 06:13: POC Whole Blood Glucose 100 01/10/20 07:40: White Blood Count 5.4, Red Blood Count 3.02L, Hemoglobin 8.8L, Hematocrit 27.2L, Mean Corpuscular Volume 90, Mean Corpuscular Hemoglobin 29.1, Mean Corpuscular Hemoglobin Concent 32.4, Red Cell Distribution Width 13.1, Platelet Count 171, Mean Platelet Volume 15.2H, Neutrophils (%) (Auto) 71.8, Lymphocytes (%) (Auto) 17.3L, Monocytes (%) (Auto) 5.7, Eosinophils (%) (Auto) 4.1H, Basophils (%) (Auto) 1.2, Sodium Level 140, Potassium Level 5.2H, Chloride Level 108H, Carbon Dioxide Level 21, Anion Gap 11, Blood Urea Nitrogen 48H, Creatinine 3.9H, Est imat Glomerular Filtration Rate 16.9, Glucose Level 83, Uric Acid 7.5H, Calcium Level 8.1L, Phosphorus Level 4.8, Magnesium Level 1.6L, Total Bilirubin 0.2, Aspartate Amino Transf (AST/SGOT) 24, Alanine Aminotransferase (ALT/SGPT) 41, Alkaline Phosphatase 197H, Total Protein 6.5, Albumin 2.7L, Globulin 3.8, Albumin/Globulin Ratio 0.7L Height (Feet): 5 Height (Inches): 2.00 Weight (Pounds): 160 Assessment/Plan Problem List: (1) Anemia ICD Codes: D64.9 - Anemia, unspecified SNOMED: 228630662 (2) KATHARINE (acute kidney injury) ICD Codes: N17.9 - Acute kidney failure, unspecified SNOMED: 72508309, 9130616 (3) Diabetes ICD Codes: E11.9 - Type 2 diabetes mellitus without complications SNOMED: 99382856 (4) Malnutrition ICD Codes: E46 - Unspecified protein-calorie malnutrition SNOMED: 61540029 (5) HTN (hypertension) ICD Codes: I10 - Essential (primary) hypertension SNOMED: 54206917 (6) Chest pain ICD Codes: R07.9 - Chest pain, unspecified SNOMED: 61648489 Status: progressing, unchanged Assessment/Plan: cp malnutrition htn anemia arf no sob afebrile reviewed chart and labs Elaine Sarmiento MD Jan 10, 2020 10:40
[2020-01-10 12:00] VITALS: BP 124/73
--- NOTE | 2020-01-10 12:56 | Nephrology Progress Note ---
Assessment/Plan Problem List: (1) KATHARINE (acute kidney injury) (2) Anemia (3) Diabetes (4) HTN (hypertension) Assessment Acute renal failure, possible underlying chronic kidney disease Chest pain, coronary artery disease Anemia Hypertension Diabetes mellitus History of prior CVA in April 2018. Plan January 09: Labs reviewed. Serum creatinine unchanged. Potassium remains somewhat elevated. More Kayexalate ordered. Continue per consultants. Blood pressure is better controlled now. Due for stress test per cardiology January 08: Labs reviewed. Serum creatinine unchanged. Potassium slightly elevated. Kayexalate ordered. Other abnormal electrolytes addressed. Previously: Magnesium supplement IV Urine studies Urine analysis Urine tox screen Flomax Kidney ultrasound, normal, negative hydronephrosis Anemia work-up, noted Keep the blood pressure and blood sugar in check Avoid nephrotoxic's Per orders Subjective ROS Limited/Unobtainable: No Constitutional: Reports: malaise Objective Objective Last 24 Hour Vital Signs Date Time Temp Pulse Resp B/P (MAP) Pulse Ox O2 Delivery O2 Flow Rate FiO2 01/10/20 09:00 Room Air 01/10/20 08:22 73 131/80 01/10/20 08:21 131/80 01/10/20 08:00 97.7 73 18 131/80 (97) 99 01/10/20 04:00 77 01/10/20 04:00 98.1 84 19 132/86 (101) 98 01/10/20 00:01 152/88 01/10/20 00:00 81 01/10/20 00:00 98.5 72 20 152/88 (109) 98 01/09/20 21:21 80 144/85 01/09/20 21:00 Room Air 01/09/20 20:00 98.8 80 18 144/85 (104) 95 01/09/20 20:00 81 01/09/20 16:00 75 01/09/20 16:00 97.7 84 19 133/88 (103) 98 01/09/20 14:00 172/93 l Intake and Output 01/09/20 01/10/20 19:00 07:00 Intake Total 360 ml 1000 ml Balance 360 ml 1000 ml Intake Oral 360 ml 1000 ml # Voids 2 5 Laboratory Tests 01/09/20 17:29: POC Whole Blood Glucose 126H 01/10/20 06:13: POC Whole Blood Glucose 100 01/10/20 07:40: White Blood Count 5.4, Red Blood Count 3.02L, Hemoglobin 8.8L, Hematocrit 27.2L, Mean Corpuscular Volume 90, Mean Corpuscular Hemoglobin 29.1, Mean Corpuscular Hemoglobin Concent 32.4, Red Cell Distribution Width 13.1, Platelet Count 171, Mean Platelet Volume 15.2H, Neutrophils (%) (Auto) 71.8, Lymphocytes (%) (Auto) 17.3L, Monocytes (%) (Auto) 5.7, Eosinophils (%) (Auto) 4.1H, Basophils (%) (Auto) 1.2, Sodium Level 140, Potassium Level 5.2H, Chloride Level 108H, Carbon Dioxide Level 21, Anion Gap 11, Blood Urea Nitrogen 48H, Creatinine 3.9H, Estimat Glomerular Filtration Rate 16.9, Glucose Level 83, Uric Acid 7.5H, Calcium Level 8.1L, Phosphorus Level 4.8, Magnesium Level 1.6L, Total Bilirubin 0.2, Aspartate Amino Transf (AST/SGOT) 24, Alanine Aminotransferase (ALT/SGPT) 41, Alkaline Phosphatase 197H, Total Protein 6.5, Albumin 2.7L, Globulin 3.8, Al bumin/Globulin Ratio 0.7L 01/10/20 12:51: POC Whole Blood Glucose 164H Height (Feet): 5 Height (Inches): 2.00 Weight (Pounds): 160 General Appearance: no apparent distress Respiratory/Chest: decreased breath sounds Abdomen: soft Objective No change Hung Pennington MD Jan 10, 2020 12:56
[2020-01-10] MEDS ORDERED: Sodium Polystyrene Sulfonate 15gm Powder ORAL ONE (13:00)
--- NOTE | 2020-01-10 13:36 | Cardiac Electrophysiology PN ---
Assessment/Plan Assessment/Plan 1. Chest pain and left arm pain and history of coronary artery disease and prior stent. Records from [facility] did not show any prior cardiac cath. Ruled out for AR. In the meantime, continue aspirin and Lipitor 80 mg daily and Lopressor 25 bid. EF 65%. Stress test results from today is pending. 2. Hypertension. Avoid YOUSUF inhibitor and angiotensin-receptor lucas in view of creatinine of 4.5. On amlodipine 10 mg daily, p.r.n. clonidine and metoprolol 25 mg b.i.d. 4. Hyperlipidemia, on Lipitor 80 mg daily. 5. Diabetes, on insulin. 6. History of prior CVA in April 2018. 7. Acute renal failure, creatinine of 4.5. Cr now is 3.9 DW RN Subjective Subjective No CP or SOB. In SR on tele. Had stress test today Objective Last 24 Hour Vital Signs Date Time Temp Pulse Resp B/P (MAP) Pulse Ox O2 Delivery O2 Flow Rate FiO2 01/10/20 09:00 Room Air 01/10/20 08:22 73 131/80 01/10/20 08:21 131/80 01/10/20 08:00 97.7 73 18 131/80 (97) 99 01/10/20 04:00 77 01/10/20 04:00 98.1 84 19 132/86 (101) 98 01/10/20 00:01 152/88 01/10/20 00:00 81 01/10/20 00:00 98.5 72 20 152/88 (109) 98 01/09/20 21:21 80 144/85 01/09/20 21:00 Room Air 01/09/20 20:00 98.8 80 18 144/85 (104) 95 01/09/20 20:00 81 01/09/20 16:00 75 01/09/20 16:00 97.7 84 19 133/88 (103) 98 01/09/20 14:00 172/93 Intake and Output 01/09/20 01/10/20 19:00 07:00 Intake Total 360 ml 1000 ml Balance 360 ml 1000 ml Intake Oral 360 ml 1000 ml # Voids 2 5 Laboratory Tests Test 01/09/20 17:29 01/10/20 06:13 01/10/20 07:40 01/10/20 12:51 POC Whole Blood Glucose 126 MG/DL (74-106) H 100 MG/DL (74-106) 164 MG/DL (74-106) H White Blood Count 5.4 K/UL (4.8-10.8) Red Blood Count 3.02 M/UL (4.70-6.10) L Hemoglobin 8.8 G/DL (14.2-18.0) L Hematocrit 27.2 % (42.0-52.0) L Mean Corpuscular Volume 90 FL (80-99) Mean Corpuscular Hemoglobin 29.1 PG (27.0-31.0) Mean Corpuscular Hemoglobin Concent 32.4 G/DL (32.0-36.0) Red Cell Distribution Width 13.1 % (11.6-14.8) Platelet Count 171 K/UL (150-450) Mean Platelet Volume 15.2 FL (6.5-10.1) H Neutrophils (%) (Auto) 71.8 % (45.0-75.0) Lymphocytes (%) (Auto) 17.3 % (20.0-45.0) L Monocytes (%) (Auto) 5.7 % (1.0-10.0) Eosinophils (%) (Auto) 4.1 % (0.0-3.0) H Basophils (%) (Auto) 1.2 % (0.0-2.0) Sodium Level 140 MMOL/L (136-145) Potassium Level 5.2 MMOL/L (3.5-5.1) H Chloride Level 108 MMOL/L (98-107) H Carbon Dioxide Level 21 MMOL/L (21-32) Anion Gap 11 mmol/L (5-15) Blood Urea Nitrogen 48 mg/dL (7-18) H Creatinine 3.9 MG/DL (0.55-1.30) H Estimat Glomerular Filtration Rate 16.9 mL/min (>60) Glucose Level 83 MG/DL (74-106) Uric Acid 7.5 MG/DL (2.6-7.2) H Calcium Level 8.1 MG/DL (8.5-10.1) L Phosphorus Level 4.8 MG/DL (2.5-4.9) Magnesium Level 1.6 MG/DL (1.8-2.4) L Total Bilirubin 0.2 MG/DL (0.2-1.0) Aspartate Amino Transf (AST/SGOT) 24 U/L (15-37) Alanine Aminotransferase (ALT/SGPT) 41 U/L (12-78) Alkaline Phosphatase 197 U/L (46-116) H Total Protein 6.5 G/DL (6.4-8.2) Albumin 2.7 G/DL (3.4-5.0) L Globulin 3.8 g/dL Albumin/Globulin Ratio 0.7 (1.0-2.7) L Objective HEAD AND NECK: No JVD. LUNGS: Clear. CARDIOVASCULAR: Regular S1 and S2 with no gallop or murmur. ABDOMEN: Soft. EXTREMITIES: No pitting edema. Phan Pereira MD Jan 10, 2020 13:36
--- NOTE | 2020-01-10 15:23 | Diagnostic Imaging Report ---
Indications: Chest pain Technique: Single day single isotope protocol utilized. Initially, resting images obtained using IV administration 10.2 millicuries 99M technetium Myoview. Subsequently, patient underwent lexiscan stress testing. See cardiology report for details. During adenosine infusion, IV administration 32 mCi 99 M technetium Myoview. SPECT and planar images obtained. SPECT images gated to 8 phases of the cardiac cycle were also obtained, and reformatted into cine images for evaluation of ejection fraction. Comparison: none Findings: Presence or absence of symptoms is not described on the cardiology report. Per cardiology report, resting EKG demonstrates normal sinus rhythm. Cardiology report states no ST changes during infusion. Imaging demonstrates normal poststress perfusion. No fixed nor reversible poststress perfusion defects are demonstrated.. Calculated post stress ejection fraction 60%. No focal wall motion abnormality Impression: Nonischemic clinical response to pharmacologic stress, per cardiology report Nonischemic electrocardiographic response to pharmacologic stress, per cardiology report No imaging findings to suggest ischemia, at level of stress achieved. Calculated post stress ejection fraction 60%
[2020-01-10 16:00] VITALS: BP 137/78
--- NOTE | 2020-01-10 16:29 | NUR ---
CASE MANAGEMENT:REVIEW 44YR OLD MALE BIBA FROM WORK CC; CHEST PAIN SI: CHEST PAIN. ACUTE KIDNEY INJURY 98.6 82 18 167/100 98% ON RA BUN+54 CR+4.5 IS:IV MORPHINE IV LABETALOL IV DILAUDID CTA CHEST CXR : TO TELEMETRY
--- NOTE | 2020-01-10 19:49 | NUR ---
NURSE NOTES: Report received from LAVONNE Jeronimo. Patient is awake on bed, alert and oriented x 4. On room air, with no shortness of breath reported. On Renal ([facility]) diet, instructed and amenable. learning facilitator is in place, shows sinus rhythm with no complaints of chest pain, but he does complaint of left arm pain which is non-radiating and Tylenol 650 mg was given by morning RN @ 1800. Patient is ambulatory with steady gait. IV site is on right hand g-18 saline lock and right AC g-18 saline lock that is patent and intact. Safety measures are in place, bed in lowest and locked position, side rails up x 2, call light button and bedside table within reach, instructed to call for any assistance needed. Will continue plan of care.
--- NOTE | 2020-01-10 19:53 | NUR ---
NURSE HAND-OFF REPORT: Important Events on Shift:pt did margie scan, see results, received fax from [facility] with med notes, monitor labs Patient Status: full Diet: Renal Pending Orders: Pending Results/Labs: Pending MD notification: Latest Vital Signs: Temperature 97.9 , Pulse 77 , B/P 137 /78 , Respiratory Rate 18 , O2 SAT 99 , Room Air, O2 Flow Rate . Vital Sign Comment: EKG Rhythm: Sinus Rhythm Rhythm change?: N MD Notified?: - MD Response: Latest Flores Fall Score: 35 Fall Risk: Medium Risk Safety Measures: Call light Within Reach, Bed Alarm Zone 1, Side Rails Side Rails x1, Bed position Low and Locked. Fall Precautions: Yellow Socks y Yellow Gown y Door Sign Patient Fall Education y Report given to Starla/Rn .
[2020-01-10 20:00] VITALS: BP 135/84
[2020-01-10] MEDS: Atorvastatin 80mg tab ORAL SCH (21:16)
[2020-01-10] MEDS: Levemir Flexpen SUBQ SCH (21:19)
[2020-01-11] VITALS: BP 134/88
[2020-01-11 04:00] VITALS: BP 129/83
--- NOTE | 2020-01-11 06:27 | General Progress Note ---
Subjective Allergies: Coded Allergies: PENICILLINS (Verified Allergy, Unknown, 01/07/20) All Systems: reviewed and negative except above Subjective events noted interval notes reviewed glucose values are stable Item Value Date Time Bedside Blood Glucose 98 mg/dl 01/10/20 2119 Bedside Blood Glucose 93 mg/dl 01/10/20 1630 Bedside Blood Glucose 164 mg/dl H 01/10/20 1255 Bedside Blood Glucose 100 mg/dl 01/10/20 0630 Objective Last 24 Hour Vital Signs Date Time Temp Pulse Resp B/P (MAP) Pulse Ox O2 Delivery O2 Flow Rate FiO2 01/11/20 04:00 97.8 70 19 129/83 (98) 98 01/11/20 04:00 70 01/11/20 00:08 134/88 01/11/20 00:00 97.9 72 20 134/88 (103) 98 01/11/20 00:00 76 01/10/20 21:18 79 135/84 01/10/20 21:00 Room Air 01/10/20 20:00 73 01/10/20 20:00 98.4 74 19 135/84 (101) 98 01/10/20 16:40 137/78 01/10/20 16:00 97.9 75 18 137/78 (97) 99 01/10/20 16:00 77 01/10/20 12:00 80 01/10/20 12:00 97.7 73 18 124/73 (90) 98 01/10/20 09:00 Room Air 01/10/20 08:22 73 131/80 01/10/20 08:21 131/80 01/10/20 08:00 75 01/10/20 08:00 97.7 73 18 131/80 (97) 99 Intake and Output 01/10/20 01/11/20 19:00 07:00 Intake Total 1200 ml Balance 1200 ml Intake Oral 1200 ml # Voids 4 Laboratory Tests 01/10/20 07:40: White Blood Count 5.4, Red Blood Count 3.02L, Hemoglobin 8.8L, Hematocrit 27.2L, Mean Corpuscular Volume 90, Mean Corpuscular Hemoglobin 29.1, Mean Corpuscular Hemoglobin Concent 32.4, Red Cell Distribution Width 13.1, Platelet Count 171, Mean Platelet Volume 15.2H, Neutrophils (%) (Auto) 71.8, Lymphocytes (%) (Auto) 17.3L, Monocytes (%) (Auto) 5.7, Eosinophils (%) (Auto) 4.1H, Basophils (%) (Auto) 1.2, Sodium Level 140, Potassium Level 5.2H, Chloride Level 108H, Carbon Dioxide Level 21, Anion Gap 11, Blood Urea Nitrogen 48H, Creatinine 3.9H, Estimat Glomerular Filtration Rate 16.9, Glucose Level 83, Uric Acid 7.5H, Calcium Level 8.1L, Phosphorus Level 4.8, Magnesium Level 1.6L, Total Bilirubin 0.2, Aspartate Amino Transf (AST/SGOT) 24, Alanine Aminotransferase (ALT/SGPT) 41, Alkaline Phosphatase 197H, Total Protein 6.5, Albumin 2.7L, Globulin 3.8, Albumin/Globulin Ratio 0.7L 01/10/20 12:51: POC Whole Blood Glucose 164H 01/10/20 16:45: POC Whole Blood Glucose [Pending] 01/10/20 21:15: POC Whole Blood Glucose 98 01/11/20 05:43: POC Whole Blood Glucose 99 Height (Feet): 5 Height (Inches): 2.00 Weight (Pounds): 160 General Appearance: no apparent distress Neck: normal alignment Cardiovascular: normal rate Abdomen: normal bowel sounds Pelvis: normal external exam Objective Current Medications Medications (Trade) Dose Ordered Sig/Jose Enrique Route PRN Reason Start Time Stop Time Status Last Admin Dose Admin Acetaminophen (Tylenol) 650 mg Q6H PRN ORAL For Pain 01/07/20 14:15 02/06/20 14:14 01/11/20 00:09 Amlodipine Besylate (Norvasc) 10 mg DAILY ORAL 01/08/20 09:00 02/07/20 08:59 01/10/20 08:22 Aspirin (ASA) 81 mg DAILY ORAL 01/08/20 09:00 02/22/20 08:59 01/10/20 08:21 Atorvastatin Calcium (Lipitor) 80 mg BEDTIME ORAL 01/07/20 21:00 04/06/20 20:59 01/10/20 21:16 Clonidine HCl (Catapres Tab) 0.1 mg Q4H PRN ORAL sbp>170 01/07/20 14:00 04/06/20 13:59 01/07/20 18:16 Clonidine HCl (Catapres Tab) 0.1 mg Q8H ORAL 01/10/20 00:00 04/09/20 00:00 01/11/20 00:08 Dextrose (Dextrose 50%) 25 ml Q30M PRN IV Hypoglycemia 01/07/20 14:30 04/06/20 14:29 Dextrose (Dextrose 50%) 50 ml Q30M PRN IV Hypoglycemia 01/07/20 14:30 04/06/20 14:29 Docusate Sodium (Colace) 100 mg THREE TIMES A DAY ORAL 01/09/20 10:00 02/08/20 09:59 01/10/20 18:00 Heparin Sodium (Porcine) (Heparin 5000 units/ml) 5,000 units EVERY 12 HOURS SUBQ 01/07/20 21:00 02/21/20 20:59 01/10/20 21:21 Insulin Aspart (NovoLOG) BEFORE MEALS AND HS SUBQ 01/08/20 21:00 04/07/20 20:59 01/10/20 12:55 Insulin Detemir (Levemir) 6 units BEDTIME SUBQ 01/07/20 21:00 04/06/20 20:59 01/10/20 21:19 Metoprolol Tartrate (Lopressor) 25 mg Q12HR ORAL 01/08/20 21:00 04/07/20 20:59 01/10/20 21:18 Morphine Sulfate (Morphine Sulfate) 2 mg Q4H PRN IVP For Pain 01/07/20 20:30 01/14/20 20:29 01/10/20 08:15 Nitroglycerin (Ntg) 0.4 mg Q5M PRN SL Prn Chest Pain 01/07/20 21:20 02/06/20 21:19 01/07/20 21:40 Pantoprazole (Protonix) 40 mg EVERY 12 HOURS ORAL 01/09/20 10:00 02/08/20 09:59 01/10/20 21:15 Regadenoson (Lexiscan) 0.4 mg ONCE PRN IV STRESS TEST 01/09/20 18:15 01/11/20 23:59 01/10/20 10:20 Tamsulosin HCl (Flomax) 0.4 mg BID ORAL 01/08/20 18:00 02/07/20 17:59 11/2/20 18:00 Zolpidem Tartrate (Ambien) 5 mg HSPRN PRN ORAL Insomnia 01/07/20 14:15 01/14/20 14:14 Assessment/Plan Problem List: (1) Diabetes ICD Codes: E11.9 - Type 2 diabetes mellitus without complications SNOMED: 03487216 (2) Chest pain ICD Codes: R07.9 - Chest pain, unspecified SNOMED: 80358094 (3) KATHARINE (acute kidney injury) ICD Codes: N17.9 - Acute kidney failure, unspecified SNOMED: 10706449, 8984053 Status: progressing, unchanged Assessment/Plan: continue Levemir 6 units qhs continue Novolog sliding scale ac / hs hypoglycemic protocol in order Sreedhar Aguirre MD Jan 11, 2020 06:27
[2020-01-11] MEDS: NovoLOG Insulin Flexpen SUBQ SCH ×4 (06:30→21:00)
--- NOTE | 2020-01-11 07:28 | NUR ---
NURSE HAND-OFF REPORT: Important Events on Shift: Patient is still complaining of left arm pain, scale of 6-8. Tylenol 650 mg was given. Patient Status: Patient is awake on bed, in stable condition. Plan of care endorsed. Diet: Regular diet Pending Orders: none Pending Results/Labs:none Pending MD notification:none Latest Vital Signs: Temperature 97.8 , Pulse 70 , B/P 129 /83 , Respiratory Rate 19 , O2 SAT 98 , Room Air, O2 Flow Rate . Vital Sign Comment: stable EKG Rhythm: Sinus Rhythm Rhythm change?: N MD Notified?: - MD Response: Latest Flores Fall Score: 35 Fall Risk: Medium Risk Safety Measures: Call light Within Reach, Bed Alarm Zone 1, Side Rails Side Rails x2, Bed position Low and Locked. Fall Precautions: Yellow Socks Yellow Gown Door Sign Patient Fall Education Report given to LAVONNE Brooke.
--- NOTE | 2020-01-11 07:55 | NUR ---
NURSE NOTES: Received report from LAVONNE Cha. Ptn is stable on RA. No s/s or complaint of distress at this time. Pt R Hand IV 20g SL, R AC 18g SL both asymptomatic and intact. Pt bed low and locked, call light in reach and bed alarm on. Pt verbalized understanding to call for help.
[2020-01-11 08:00] VITALS: BP 134/82
[2020-01-11] MEDS: Heparin 5000 units/ml inj SUBQ SCH ×2 (08:07→21:01)
[2020-01-11] MEDS: Aspirin Baby 81mg ORAL SCH (08:07)
[2020-01-11] MEDS: Docusate 100mg cap ORAL SCH ×3 (08:07→17:40)
[2020-01-11] MEDS: Tamsulosin 0.4mg cap ORAL SCH ×2 (08:08→17:40)
--- NOTE | 2020-01-11 10:15 | General Progress Note ---
Subjective ROS Limited/Unobtainable: Yes Allergies: Coded Allergies: PENICILLINS (Verified Allergy, Unknown, 01/07/20) Objective Last 24 Hour Vital Signs Date Time Temp Pulse Resp B/P (MAP) Pulse Ox O2 Delivery O2 Flow Rate FiO2 01/11/20 09:00 Room Air 01/11/20 08:08 72 134/82 01/11/20 08:08 72 134/83 01/11/20 08:00 97.9 72 17 134/82 (99) 98 01/11/20 08:00 134/82 01/11/20 08:00 70 01/11/20 04:00 97.8 70 19 129/83 (98) 98 01/11/20 04:00 70 01/11/20 00:08 134/88 01/11/20 00:00 97.9 72 20 134/88 (103) 98 01/11/20 00:00 76 01/10/20 21:18 79 135/84 01/10/20 21:00 Room Air 01/10/20 20:00 73 01/10/20 20:00 98.4 74 19 135/84 (101) 98 01/10/20 16:40 137/78 01/10/20 16:00 97.9 75 18 137/78 (97) 99 01/10/20 16:00 77 01/10/20 12:00 80 01/10/20 12:00 97.7 73 18 124/73 (90) 98 Intake and Output 01/10/20 01/11/20 19:00 07:00 Intake Total 1200 ml 1000 ml Balance 1200 ml 1000 ml Intake Oral 1200 ml 1000 ml # Voids 4 3 Laboratory Tests 01/10/20 12:51: POC Whole Blood Glucose 164H 01/10/20 16:45: POC Whole Blood Glucose [Pending] 01/10/20 21:15: POC Whole Blood Glucose 98 01/11/20 05:43: POC Whole Blood Glucose 99 Height (Feet): 5 Height (Inches): 2.00 Weight (Pounds): 160 Assessment/Plan Problem List: (1) Anemia ICD Codes: D64.9 - Anemia, unspecified SNOMED: 216472843 (2) KATHARINE (acute kidney injury) ICD Codes: N17.9 - Acute kidney failure, unspecified SNOMED: 25368368, 6151615 (3) Diabetes ICD Codes: E11.9 - Type 2 diabetes mellitus without complications SNOMED: 57356265 (4) Malnutrition ICD Codes: E46 - Unspecified protein-calorie malnutrition SNOMED: 87141248 (5) HTN (hypertension) ICD Codes: I10 - Essential (primary) hypertension SNOMED: 53280439 (6) Chest pain ICD Codes: R07.9 - Chest pain, unspecified SNOMED: 91435457 Status: progressing, unchanged Assessment/Plan: no chest pain today vitals stable htn arf no sob afebrile reviewed chart and labs borderline elevated k Elaine Sarmiento MD Jan 11, 2020 10:15
[2020-01-11] MEDS: Morphine Sulfate 2mg/ml Inj(IV/IM USE ONLY) IVP PRN (11:13)
[2020-01-11 11:51] VITALS: BP 145/91
--- NOTE | 2020-01-11 12:18 | Cardiac Electrophysiology PN ---
Assessment/Plan Assessment/Plan 1. Chest pain and left arm pain and history of coronary artery disease and prior stent. Records from [facility] did not show any prior cardiac cath. Ruled out for OR. In the meantime, continue aspirin and Lipitor 80 mg daily and Lopressor 25 bid. EF 65%. Stress test showed no ischemia. 2. Hypertension. Avoid YOUSUF inhibitor and angiotensin-receptor lucas in view of creatinine of 4.5. On amlodipine 10 mg daily, p.r.n. clonidine and metoprolol 25 mg b.i.d. 4. Hyperlipidemia, on Lipitor 80 mg daily. 5. Diabetes, on insulin. 6. History of prior CVA in April 2018. 7. Acute renal failure, creatinine of 4.5. Cr now is 3.9 DW RN Subjective Subjective No CP or SOB. In SR on tele. Stress test yesterday was nonischemic Objective Last 24 Hour Vital Signs Date Time Temp Pulse Resp B/P (MAP) Pulse Ox O2 Delivery O2 Flow Rate FiO2 01/11/20 11:51 97.7 67 18 145/91 (109) 98 01/11/20 09:00 Room Air 01/11/20 08:08 72 134/82 01/11/20 08:08 72 134/83 01/11/20 08:00 97.9 72 17 134/82 (99) 98 01/11/20 08:00 134/82 01/11/20 08:00 70 01/11/20 04:00 97.8 70 19 129/83 (98) 98 01/11/20 04:00 70 01/11/20 00:08 134/88 01/11/20 00:00 97.9 72 20 134/88 (103) 98 01/11/20 00:00 76 01/10/20 21:18 79 135/84 01/10/20 21:00 Room Air 01/10/20 20:00 73 01/10/20 20:00 98.4 74 19 135/84 (101) 98 01/10/20 16:40 137/78 01/10/20 16:00 97.9 75 18 137/78 (97) 99 01/10/20 16:00 77 Intake and Output 01/10/20 01/11/20 19:00 07:00 Intake Total 1200 ml 1000 ml Balance 1200 ml 1000 ml Intake Oral 1200 ml 1000 ml # Voids 4 3 Laboratory Tests Test 01/10/20 12:51 01/10/20 16:45 01/10/20 21:15 01/11/20 05:43 POC Whole Blood Glucose 164 MG/DL (74-106) H Pending 98 MG/DL (74-106) 99 MG/DL (74-106) Test 01/11/20 10:57 POC Whole Blood Glucose 114 MG/DL (74-106) H Objective HEAD AND NECK: No JVD. LUNGS: Clear. CARDIOVASCULAR: Regular S1 and S2 with no gallop or murmur. ABDOMEN: Soft. EXTREMITIES: No pitting edema. Phan Pereira MD Jan 11, 2020 12:18
--- NOTE | 2020-01-11 12:58 | NUR ---
CASE MANAGEMENT:REVIEW 01/11/20 SI: CHEST PAIN. ACUTE KIDNEY INJURY 97.7 67 18 145/91 98% ON RA GLUCOSE+114 IS: CLONIDINE PO Q8HRS PROTONIX PO Q12 LOPRESSOR PO Q12 FLOMAX PO BID ASA PO QD NORVASC PO QD LEVEMIR SQ QHS HEPARIN SQ Q12 : TELEMETRY STATUS DCP: FROM HOME PLAN: STRESS TEST COMPLETED YESTERDAY MD TO EVALUATE FOR DISCHARGE
--- NOTE | 2020-01-11 13:01 | NUR ---
RD ASSESSMENT & RECOMMENDATIONS SEE CARE ACTIVITY FOR COMPLETE ASSESSMENT DAILY ESTIMATED NEEDS: Needs based on ARF, DM/ 59kg abw 25-30 kcals/kg 8066-2036 total kcals 0.6-1.0 g protein/kg 35-59 g total protein 25-30 mL/kg 9855-4918 total fluid mLs NUTRITION DIAGNOSIS: Altered nutrition related lab values R/T ARF as evidenced by elev creat (4.5-> 3.9), elev K (5.2). CURRENT DIET:RENAL, CCHO MED PO DIET RECOMMENDATIONS: CCHO Med, Renal w/ 60g protein restriction ADDITIONAL RECOMMENDATIONS: * Daily standing wt * Monitor renal fxn and lytes (K elev, phos high end of normal range) -> maintain renal diet restriction * Monitor BGs- good BG control at this time * IT RISK AND ASSURANCE MANAGER eval if appropriate: h/o CVA
--- NOTE | 2020-01-11 14:37 | Nephrology Progress Note ---
Assessment/Plan Problem List: (1) KATHARINE (acute kidney injury) (2) Anemia (3) Diabetes (4) HTN (hypertension) Assessment Acute renal failure, possible underlying chronic kidney disease Chest pain, coronary artery disease Anemia Hypertension Diabetes mellitus History of prior CVA in April 2018. Plan January 10: No labs done today. Stable clinically. Cardiology work-up negative so far. Check labs in a.m. 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 January 09: Labs reviewed. Serum creatinine unchanged. Potassium remains somewhat elevated. More Kayexalate ordered. Continue per consultants. Blood pressure is better controlled now. Due for stress test per cardiology January 08: Labs reviewed. Serum creatinine unchanged. Potassium slightly elevated. Kayexalate ordered. Other abnormal electrolytes addressed. Previously: Magnesium supplement IV Urine studies Urine analysis Urine tox screen Flomax Kidney ultrasound, normal, negative hydronephrosis Anemia work-up, noted Keep the blood pressure and blood sugar in check Avoid nephrotoxic's Per orders Subjective ROS Limited/Unobtainable: No Constitutional: Reports: malaise Objective Objective Last 24 Hour Vital Signs Date Time Temp Pulse Resp B/P (MAP) Pulse Ox O2 Delivery O2 Flow Rate FiO2 01/11/20 12:00 70 01/11/20 11:51 97.7 67 18 145/91 (109) 98 01/11/20 09:00 Room Air 01/11/20 08:08 72 134/82 01/11/20 08:08 72 134/83 01/11/20 08:00 97.9 72 17 134/82 (99) 98 01/11/20 08:00 134/82 01/11/20 08:00 70 01/11/20 04:00 97.8 70 19 129/83 (98) 98 01/11/20 04:00 70 01/11/20 00:08 134/88 01/11/20 00:00 97.9 72 20 134/88 (103) 98 01/11/20 00:00 76 01/10/20 21:18 79 135/84 01/10/20 21:00 Room Air 01/10/20 20:00 73 01/10/20 20:00 98.4 74 19 135/84 (101) 98 01/10/20 16:40 137/78 01/10/20 16:00 97.9 75 18 137/78 (97) 99 01/10/20 16:00 77 Intake and Output 01/10/20 01/11/20 19:00 07:00 Intake Total 1200 ml 1000 ml Balance 1200 ml 1000 ml Intake Oral 1200 ml 1000 ml # Voids 4 3 Current Medications Medications (Trade) Dose Ordered Sig/Jose Enrique Route PRN Reason Start Time Stop Time Status Last Admin Dose Admin Acetaminophen (Tylenol) 650 mg Q6H PRN ORAL For Pain 01/07/20 14:15 02/06/20 14:14 01/11/20 06:33 Amlodipine Besylate (Norvasc) 10 mg DAILY ORAL 01/08/20 09:00 02/07/20 08:59 01/11/20 08:08 Aspirin (ASA) 81 mg DAILY ORAL 01/08/20 09:00 02/22/20 08:59 01/11/20 08:07 Atorvastatin Calcium (Lipitor) 80 mg BEDTIME ORAL 01/07/20 21:00 04/06/20 20:59 01/10/20 21:16 Clonidine HCl (Catapres Tab) 0.1 mg Q4H PRN ORAL sbp>170 01/07/20 14:00 04/06/20 13:59 01/07/20 18:16 Clonidine HCl (Catapres Tab) 0.1 mg Q8H ORAL 01/10/20 00:00 04/09/20 00:00 01/11/20 00:08 Dextrose (Dextrose 50%) 25 ml Q30M PRN IV Hypoglycemia 01/07/20 14:30 04/06/20 14:29 Dextrose (Dextrose 50%) 50 ml Q30M PRN IV Hypoglycemia 01/07/20 14:30 04/06/20 14:29 Docusate Sodium (Colace) 100 mg THREE TIMES A DAY ORAL 01/09/20 10:00 02/08/20 09:59 01/11/20 13:12 Heparin Sodium (Porcine) (Heparin 5000 units/ml) 5,000 units EVERY 12 HOURS SUBQ 01/07/20 21:00 02/21/20 20:59 01/11/20 08:07 Insulin Aspart (NovoLOG) BEFORE MEALS AND HS SUBQ 01/08/20 21:00 04/07/20 20:59 01/10/20 12:55 Insulin Detemir (Levemir) 6 units BEDTIME SUBQ 01/07/20 21:00 04/06/20 20:59 01/10/20 21:19 Metoprolol Tartrate (Lopressor) 25 mg Q12HR ORAL 01/08/20 21:00 04/07/20 20:59 01/11/20 08:08 Morphine Sulfate (Morphine Sulfate) 2 mg Q4H PRN IVP For Pain 01/07/20 20:30 01/14/20 20:29 01/11/20 11:13 Nitroglycerin (Ntg) 0.4 mg Q5M PRN SL Prn Chest Pain 01/07/20 21:20 02/06/20 21:19 01/07/20 21:40 Pantoprazole (Protonix) 40 mg EVERY 12 HOURS ORAL 01/09/20 10:00 02/08/20 09:59 01/11/20 08:07 Regadenoson (Lexiscan) 0.4 mg ONCE PRN IV STRESS TEST 01/09/20 18:15 01/11/20 23:59 01/10/20 10:20 Tamsulosin HCl (Flomax) 0.4 mg BID ORAL 01/08/20 18:00 02/07/20 17:59 01/11/20 08:08 Zolpidem Tartrate (Ambien) 5 mg HSPRN PRN ORAL Insomnia 01/07/20 14:15 01/14/20 14:14 No chemistry panel done today Laboratory Tests 01/10/20 16:45: POC Whole Blood Glucose [Pending] 01/10/20 21:15: POC Whole Blood Glucose 98 01/11/20 05:43: POC Whole Blood Glucose 99 01/11/20 10:57: POC Whole Blood Glucose 114H Height (Feet): 5 Height (Inches): 2.00 Weight (Pounds): 160 General Appearance: no apparent distress, lethargic Cardiovascular: normal rate Respiratory/Chest: decreased breath sounds Abdomen: distended Objective No change Hung Pennington MD Jan 11, 2020 14:37
[2020-01-11 15:57] VITALS: BP 134/76
--- NOTE | 2020-01-11 19:28 | NUR ---
NURSE HAND-OFF REPORT: Important Events on Shift: Patient Status: fc, stable Diet: renal ccho medium Pending Orders: Pending Results/Labs: Pending MD notification: Latest Vital Signs: Temperature 97.7 , Pulse 75 , B/P 134 /76 , Respiratory Rate 18 , O2 SAT 98 , Room Air, O2 Flow Rate . Vital Sign Comment: EKG Rhythm: Sinus Rhythm Rhythm change?: N MD Notified?: - MD Response: Latest Flores Fall Score: 35 Fall Risk: Medium Risk Safety Measures: Call light Within Reach, Bed Alarm Zone 1, Side Rails Side Rails x2, Bed position Low and Locked. Fall Precautions: Yellow Socks Yellow Gown Door Sign Patient Fall Education Report given to LAVONNE Quinn.
--- NOTE | 2020-01-11 19:44 | NUR ---
NURSE NOTES: Patient received from Mendy BANERJEE. Patient in stable condition. Alert and oriented x4. Saturating well on room air. Still complaining of Left arm pain, will give due PRN medication. No s/s of distress. IV site on Right hand 20G SL and Right AC 18G SL. Bed in lowest position and locked. Call light and bedside table within reach. WIll continue plan of care.
[2020-01-11 20:00] VITALS: BP 128/78
[2020-01-11] MEDS: Atorvastatin 80mg tab ORAL SCH (21:00)
[2020-01-11] MEDS: Levemir Flexpen SUBQ SCH (21:03)
[2020-01-12] VITALS: BP 120/78
[2020-01-12 04:00] VITALS: BP 114/78
--- NOTE | 2020-01-12 04:07 | Cardiology Report ---
APPROVED REPORT EXAM: Two-dimensional and M-mode echocardiogram with Doppler and color Doppler. INDICATION Chest Pain M-Mode DIMENSIONS IVSd1.1 (0.7-1.1cm)Left Atrium (MM)3.5 (1.6-4.0cm) LVDd4.3 (3.5-5.6cm)Aortic Root3.1 (2.0-3.7cm) PWd1.0 (0.7-1.1cm)Aortic Cusp Exc.1.5 (1.5-2.0cm) IVSs1.8 cmEPSS1.0 (>1.0cm) LVDs2.0 (2.5-4.0cm) PWs1.9 cm <Conclusion> Normal left ventricular chamber size, systolic function and wall motion. Left ventricular ejection fraction estimated to be 65-70 %. Borderline left ventricular hypertrophy. No evidence of pericardial effusion. All other cardiac chamber sizes are within normal limits. Normal appearing aortic, pulmonic and tricuspid valves. Mildly thickened mitral valve leaflets with normal excursion. Mild mitral annulus and aortic root calcification. IVC is normal in size with physiological collapse. A color flow and spectral Doppler study was performed and revealed: Trace aortic regurgitation. Trace mitral regurgitation. Mitral diastolic velocities suggest mild left ventricular diastolic dysfunction (Grade I). Trace tricuspid regurgitation. Tricuspid systolic velocities suggests peak right ventricular systolic pressure of 20 mmHg. No pulmonic regurgitation present.
--- NOTE | 2020-01-12 04:08 | Cardiology Report ---
APPROVED REPORT EKG Measurement Heart [id number] <Conclusion> Normal sinus rhythm Normal ECG
--- NOTE | 2020-01-12 06:09 | General Progress Note ---
Subjective Allergies: Coded Allergies: PENICILLINS (Verified Allergy, Unknown, 01/07/20) All Systems: reviewed and negative except above Subjective events noted interval notes reviewed glucose values are stable Item Value Date Time Bedside Blood Glucose 113 mg/dl 01/11/20 2103 Bedside Blood Glucose 118 mg/dl 01/11/20 1630 Bedside Blood Glucose 114 mg/dl 01/11/20 1101 Bedside Blood Glucose 114 mg/dl 01/11/20 1057 Bedside Blood Glucose 99 mg/dl 01/11/20 0634 Objective Last 24 Hour Vital Signs Date Time Temp Pulse Resp B/P (MAP) Pulse Ox O2 Delivery O2 Flow Rate FiO2 01/12/20 04:00 68 01/12/20 04:00 97.7 77 20 114/78 (90) 96 01/12/20 00:00 70 01/12/20 00:00 97.7 70 18 120/78 (92) 95 01/12/20 00:00 120/78 01/11/20 21:01 69 129/78 01/11/20 21:00 Room Air 01/11/20 20:00 97.9 66 18 128/78 (95) 95 01/11/20 20:00 66 01/11/20 17:22 97.7 01/11/20 16:52 134/76 01/11/20 16:30 75 01/11/20 15:57 97.7 75 18 134/76 (95) 98 01/11/20 12:00 70 01/11/20 11:51 97.7 67 18 145/91 (109) 98 01/11/20 09:00 Room Air 01/11/20 08:08 72 134/82 01/11/20 08:08 72 134/83 01/11/20 08:00 97.9 72 17 134/82 (99) 98 01/11/20 08:00 134/82 01/11/20 08:00 70 Intake and Output 01/11/20 01/12/20 19:00 07:00 Intake Total 1020 ml Balance 1020 ml Intake Oral 1020 ml # Voids 3 Laboratory Tests 01/11/20 10:57: POC Whole Blood Glucose 114H 01/11/20 16:45: POC Whole Blood Glucose 118H 01/11/20 20:58: POC Whole Blood Glucose 113H 01/12/20 05:08: POC Whole Blood Glucose 102 Height (Feet): 5 Height (Inches): 2.00 Weight (Pounds): 160 General Appearance: no apparent distress Neck: normal alignment Cardiovascular: normal rate Respiratory/Chest: lungs clear Abdomen: normal bowel sounds Pelvis: normal external exam Objective Current Medications Medications (Trade) Dose Ordered Sig/Jose Enrique Route PRN Reason Start Time Stop Time Status Last Admin Dose Admin Acetaminophen (Tylenol) 650 mg Q6H PRN ORAL For Pain 01/07/20 14:15 02/06/20 14:14 01/12/20 00:30 Amlodipine Besylate (Norvasc) 10 mg DAILY ORAL 01/08/20 09:00 02/07/20 08:59 01/11/20 08:08 Aspirin (ASA) 81 mg DAILY ORAL 01/08/20 09:00 02/22/20 08:59 01/11/20 08:07 Atorvastatin Calcium (Lipitor) 80 mg BEDTIME ORAL 01/07/20 21:00 04/06/20 20:59 01/11/20 21:00 Clonidine HCl (Catapres Tab) 0.1 mg Q4H PRN ORAL sbp>170 01/07/20 14:00 04/06/20 13:59 01/07/20 18:16 Clonidine HCl (Catapres Tab) 0.1 mg Q8H ORAL 01/10/20 00:00 04/09/20 00:00 01/11/20 16:52 Dextrose (Dextrose 50%) 25 ml Q30M PRN IV Hypoglycemia 01/07/20 14:30 04/06/20 14:29 Dextrose (Dextrose 50%) 50 ml Q30M PRN IV Hypoglycemia 01/07/20 14:30 04/06/20 14:29 Docusate Sodium (Colace) 100 mg THREE TIMES A DAY ORAL 01/09/20 10:00 02/08/20 09:59 01/11/20 17:40 Heparin Sodium (Porcine) (Heparin 5000 units/ml) 5,000 units EVERY 12 HOURS SUBQ 01/07/20 21:00 02/21/20 20:59 01/11/20 21:01 Insulin Aspart (NovoLOG) BEFORE MEALS AND HS SUBQ 01/08/20 21:00 04/07/20 20:59 01/10/20 12:55 Insulin Detemir (Levemir) 6 units BEDTIME SUBQ 01/07/20 21:00 04/06/20 20:59 01/11/20 21:03 Metoprolol Tartrate (Lopressor) 25 mg Q12HR ORAL 01/08/20 21:00 04/07/20 20:59 01/11/20 21:01 Morphine Sulfate (Morphine Sulfate) 2 mg Q4H PRN IVP For Pain 01/07/20 20:30 01/14/20 20:29 01/11/20 11:13 Nitroglycerin (Ntg) 0.4 mg Q5M PRN SL Prn Chest Pain 01/07/20 21:20 02/06/20 21:19 01/07/20 21:40 Pantoprazole (Protonix) 40 mg EVERY 12 HOURS ORAL 01/09/20 10:00 02/08/20 09:59 01/11/20 21:00 Tamsulosin HCl (Flomax) 0.4 mg BID ORAL 01/08/20 18:00 02/07/20 17:59 01/11/20 17:40 Zolpidem Tartrate (Ambien) 5 mg HSPRN PRN ORAL Insomnia 01/07/20 14:15 01/14/20 14:14 Assessment/Plan Problem List: (1) Diabetes ICD Codes: E11.9 - Type 2 diabetes mellitus without complications SNOMED: 98885272 (2) Chest pain ICD Codes: R07.9 - Chest pain, unspecified SNOMED: 15855307 (3) KATHARINE (acute kidney injury) ICD Codes: N17.9 - Acute kidney failure, unspecified SNOMED: 44437164, 6425085 Status: progressing, unchanged Assessment/Plan: continue Levemir 6 units qhs continue Novolog sliding scale ac / hs hypoglycemic protocol in order Sreedhar Aguirre MD Jan 12, 2020 06:09
[2020-01-12] MEDS: NovoLOG Insulin Flexpen SUBQ SCH ×2 (06:11→12:10)
--- NOTE | 2020-01-12 07:10 | NUR ---
NURSE NOTES: Received Pt report from LAVONNE Quinn. Pt is stable and asleep in bed. Pt has no s/s or complaint of distress at this time. Pt on RA, unlabored and even breathing. Pt R hand 20g SL, R AC 18g SL, both asymptomatic and intact. Pt bed low and locked, call light in reach and bed alarm on.
[2020-01-12 07:20] LABS: BASOPHILS % (AUTO) 1.2 % (0.0-2.0); EOSINOPHILS % (AUTO) 4.5 % (0.0-3.0); HEMOGLOBIN 9.3 G/DL (14.2-18.0); LYMPHOCYTES % (AUTO) 18.8 % (20.0-45.0); MEAN CORPUSCULAR VOLUME 92 FL (80-99); MONOCYTES % (AUTO) 7.7 % (1.0-10.0); NEUTROPHILS % (AUTO) 67.8 % (45.0-75.0); PLATELET COUNT 162 K/UL (150-450); RED BLOOD COUNT 3.17 M/UL (4.70-6.10); WHITE BLOOD COUNT 5.6 K/UL (4.8-10.8)
--- NOTE | 2020-01-12 07:20 | NUR ---
NURSE HAND-OFF REPORT: Important Events on Shift:[None] Patient Status: [Stable] Diet: [Renal and CCHO Medium] Pending Orders: [] Pending Results/Labs:[] Pending MD notification:[] Latest Vital Signs: Temperature 97.7 , Pulse 77 , B/P 114 /78 , Respiratory Rate 20 , O2 SAT 96 , Room Air, O2 Flow Rate . Vital Sign Comment: [] EKG Rhythm: Sinus Rhythm Rhythm change?: N MD Notified?: - MD Response: Latest Flores Fall Score: 35 Fall Risk: Medium Risk Safety Measures: Call light Within Reach, Bed Alarm Zone 1, Side Rails Side Rails x2, Bed position Low and Locked. Fall Precautions: Yellow Socks Yellow Gown Door Sign Patient Fall Education Report given to [Mendy BANERJEE].
[2020-01-12 07:29] LABS: ALBUMIN 2.8 G/DL (3.4-5.0); ALBUMIN/GLOBULIN RATIO 0.7 (1.0-2.7); BILIRUBIN,TOTAL 0.2 MG/DL (0.2-1.0); CREATININE 4.2 MG/DL (0.55-1.30); PHOSPHORUS 3.7 MG/DL (2.5-4.9); POTASSIUM 4.4 MMOL/L (3.5-5.1)
[2020-01-12] MEDS: Heparin 5000 units/ml inj SUBQ SCH (08:46)
[2020-01-12] MEDS: Aspirin Baby 81mg ORAL SCH (08:47)
[2020-01-12] MEDS: Docusate 100mg cap ORAL SCH ×2 (08:47→12:07)
[2020-01-12] MEDS: Tamsulosin 0.4mg cap ORAL SCH (08:47)
--- NOTE | 2020-01-12 08:57 | NUR ---
NURSE NOTES: Held Clonidine 0800 because Pt BP 140/90. Looked at past VS trends and when the nurse gave clonidine BP dropped to SBP 120s when amlodipine and metoprolol were held. Gave amlodipine and metoprolol at 0840 as directed.
--- NOTE | 2020-01-12 10:47 | Nephrology Progress Note ---
Assessment/Plan Problem List: (1) KATHARINE (acute kidney injury) (2) Anemia (3) Diabetes (4) HTN (hypertension) Assessment Acute renal failure, possible underlying chronic kidney disease Chest pain, coronary artery disease Anemia Hypertension Diabetes mellitus History of prior CVA in April 2018. Plan January 11: Labs reviewed. Creatinine higher. Discussed with the patient need for dialysis. Patient would like to wait. Since no urgency in arranging for dialysis right now, patient can follow-up with partition notcher as an outpatient and arrange for catheter placement and initiation of dialysis when he makes up his mind. January 10: No labs done today. Stable clinically. Cardiology work-up negative so far. Check labs in a.m. If discharged need to follow-up with partition notcher as an outpatient regularly. January 09: Labs reviewed. Serum creatinine unchanged. Potassium remains somewhat elevated. More Kayexalate ordered. Continue per consultants. Blood pressure is better controlled now. Due for stress test per cardiology January 08: Labs reviewed. Serum creatinine unchanged. Potassium slightly elevated. Kayexalate ordered. Other abnormal electrolytes addressed. Previously: Magnesium supplement IV Urine studies Urine analysis Urine tox screen Flomax Kidney ultrasound, normal, negative hydronephrosis Anemia work-up, noted Keep the blood pressure and blood sugar in check Avoid nephrotoxic's Per orders Subjective ROS Limited/Unobtainable: No Constitutional: Reports: malaise Objective Objective Last 24 Hour Vital Signs Date Time Temp Pulse Resp B/P (MAP) Pulse Ox O2 Delivery O2 Flow Rate FiO2 01/12/20 09:00 Room Air 01/12/20 08:48 140/90 01/12/20 08:48 86 140/90 01/12/20 08:47 86 140/90 01/12/20 08:00 71 01/12/20 04:00 68 01/12/20 04:00 97.7 77 20 114/78 (90) 96 01/12/20 00:00 70 01/12/20 00:00 97.7 70 18 120/78 (92) 95 01/12/20 00:00 120/78 01/11/20 21:01 69 129/78 01/11/20 21:00 Room Air 01/11/20 20:00 97.9 66 18 128/78 (95) 95 01/11/20 20:00 66 01/11/20 17:22 97.7 01/11/20 16:52 134/76 01/11/20 16:30 75 01/11/20 15:57 97.7 75 18 134/76 (95) 98 01/11/20 12:00 70 01/11/20 11:51 97.7 67 18 145/91 (109) 98 Intake and Output 01/11/20 01/12/20 19:00 07:00 Intake Total 1020 ml Balance 1020 ml Intake Oral 1020 ml # Voids 3 2 Current Medications Medications (Trade) Dose Ordered Sig/Jose Enrique Route PRN Reason Start Time Stop Time Status Last Admin Dose Admin Acetaminophen (Tylenol) 650 mg Q6H PRN ORAL For Pain 01/07/20 14:15 02/06/20 14:14 01/12/20 08:47 Amlodipine Besylate (Norvasc) 10 mg DAILY ORAL 01/08/20 09:00 02/07/20 08:59 01/12/20 08:48 Aspirin (ASA) 81 mg DAILY ORAL 01/08/20 09:00 02/22/20 08:59 01/12/20 08:47 Atorvastatin Calcium (Lipitor) 80 mg BEDTIME ORAL 01/07/20 21:00 04/06/20 20:59 01/11/20 21:00 Clonidine HCl (Catapres Tab) 0.1 mg Q4H PRN ORAL sbp>170 01/07/20 14:00 04/06/20 13:59 01/07/20 18:16 Clonidine HCl (Catapres Tab) 0.1 mg Q8H ORAL 01/10/20 00:00 04/09/20 00:00 01/11/20 16:52 Dextrose (Dextrose 50%) 25 ml Q30M PRN IV Hypoglycemia 01/07/20 14:30 04/06/20 14:29 Dextrose (Dextrose 50%) 50 ml Q30M PRN IV Hypoglycemia 01/07/20 14:30 04/06/20 14:29 Docusate Sodium (Colace) 100 mg THREE TIMES A DAY ORAL 01/09/20 10:00 02/08/20 09:59 01/12/20 08:47 Heparin Sodium (Porcine) (Heparin 5000 units/ml) 5,000 units EVERY 12 HOURS SUBQ 01/07/20 21:00 02/21/20 20:59 01/12/20 08:46 Insulin Aspart (NovoLOG) BEFORE MEALS AND HS SUBQ 01/08/20 21:00 04/07/20 20:59 01/10/20 12:55 Insulin Detemir (Levemir) 6 units BEDTIME SUBQ 01/07/20 21:00 04/06/20 20:59 01/11/20 21:03 Metoprolol Tartrate (Lopressor) 25 mg Q12HR ORAL 01/08/20 21:00 04/07/20 20:59 01/12/20 08:47 Morphine Sulfate (Morphine Sulfate) 2 mg Q4H PRN IVP For Pain 01/07/20 20:30 01/14/20 20:29 01/11/20 11:13 Nitroglycerin (Ntg) 0.4 mg Q5M PRN SL Prn Chest Pain 01/07/20 21:20 02/06/20 21:19 01/07/20 21:40 Pantoprazole (Protonix) 40 mg EVERY 12 HOURS ORAL 01/09/20 10:00 02/08/20 09:59 01/12/20 08:46 Tamsulosin HCl (Flomax) 0.4 mg BID ORAL 01/08/20 18:00 02/07/20 17:59 01/12/20 08:47 Zolpidem Tartrate (Ambien) 5 mg HSPRN PRN ORAL Insomnia 01/07/20 14:15 01/14/20 14:14 Laboratory Tests 01/11/20 10:57: POC Whole Blood Glucose 114H 01/11/20 16:45: POC Whole Blood Glucose 118H 01/11/20 20:58: POC Whole Blood Glucose 113H 01/12/20 05:08: POC Whole Blood Glucose 102 01/12/20 06:30: White Blood Count 5.6, Red Blood Count 3.17L, Hemoglobin 9.3L, Hematocrit 29.0L, Mean Corpuscular Volume 92, Mean Corpuscular Hemoglobin 29.5, Mean Corpuscular Hemoglobin Concent 32.3, Red Cell Distribution Width 13.0, Platelet Count 162, Mean Platelet Volume 14.4H, Neutrophils (%) (Auto) 67.8, Lymphocytes (%) (Auto) 18.8L, Monocytes (%) (Auto) 7.7, Eosinophils (%) (Auto) 4.5H, Basophils (%) (Auto) 1.2, Sodium Level 138, Potassium Level 4.4, Chloride Level 106, Carbon Dioxide Level 22, Anion Gap 10, Blood Urea Nitrogen 51H, Creatinine 4.2H, Estimat Glomerular Filtration Rate 15.5, Glucose Level 115H, Uric Acid 7.7H, Calcium Level 8.0L, Phosphorus Level 3.7, Total Bilirubin 0.2, Aspartate Amino Transf (AST/SGOT) 29, Alanine Aminotransferase (ALT/SGPT) 47, Alkaline Phosphatase 206H, Total Protein 6.7, Albumin 2.8L, Globulin 3.9, Albumin/Globulin Ratio 0.7L Height (Feet): 5 Height (Inches): 2.00 Weight (Pounds): 160 General Appearance: no apparent distress Cardiovascular: normal rate Respiratory/Chest: lungs clear Abdomen: soft Objective No change Hung Pennington MD Jan 12, 2020 10:47
--- NOTE | 2020-01-12 11:00 | NUR ---
NURSE NOTES: During rounds, Dr Pereira said "ok to go home from cardiology standpoint'. order acknowledged and entered under OTHER NURSING CARE ORDERS.
[2020-01-12 12:00] VITALS: BP 124/80
--- NOTE | 2020-01-12 13:04 | General Progress Note ---
Subjective ROS Limited/Unobtainable: Yes Allergies: Coded Allergies: PENICILLINS (Verified Allergy, Unknown, 01/07/20) Objective Last 24 Hour Vital Signs Date Time Temp Pulse Resp B/P (MAP) Pulse Ox O2 Delivery O2 Flow Rate FiO2 01/12/20 12:00 97.1 73 20 124/80 (95) 97 01/12/20 12:00 74 01/12/20 09:00 Room Air 01/12/20 08:48 140/90 01/12/20 08:48 86 140/90 01/12/20 08:47 86 140/90 01/12/20 08:00 71 01/12/20 04:00 68 01/12/20 04:00 97.7 77 20 114/78 (90) 96 01/12/20 00:00 70 01/12/20 00:00 97.7 70 18 120/78 (92) 95 01/12/20 00:00 120/78 01/11/20 21:01 69 129/78 01/11/20 21:00 Room Air 01/11/20 20:00 97.9 66 18 128/78 (95) 95 01/11/20 20:00 66 01/11/20 17:22 97.7 01/11/20 16:52 134/76 01/11/20 16:30 75 01/11/20 15:57 97.7 75 18 134/76 (95) 98 Intake and Output 01/11/20 01/12/20 19:00 07:00 Intake Total 1020 ml Balance 1020 ml Intake Oral 1020 ml # Voids 3 2 Laboratory Tests 01/11/20 16:45: POC Whole Blood Glucose 118H 01/11/20 20:58: POC Whole Blood Glucose 113H 01/12/20 05:08: POC Whole Blood Glucose 102 01/12/20 06:30: White Blood Count 5.6, Red Blood Count 3.17L, Hemoglobin 9.3L, Hematocrit 29.0L, Mean Corpuscular Volume 92, Mean Corpuscular Hemoglobin 29.5, Mean Corpuscular Hemoglobin Concent 32.3, Red Cell Distribution Width 13.0, Platelet Count 162, Mean Platelet Volume 14.4H, Neutrophils (%) (Auto) 67.8, Lymphocytes (%) (Auto) 18.8L, Monocytes (%) (Auto) 7.7, Eosinophils (%) (Auto) 4.5H, Basophils (%) (Auto) 1.2, Sodium Level 138, Potassium Level 4.4, Chloride Level 106, Carbon Dioxide Level 22, Anion Gap 10, Blood Urea Nitrogen 51H, Creatinine 4.2H, Estimat Glomerular Filtration Rate 15.5, Glucose Level 115H, Uric Acid 7.7H, Calcium Level 8.0L, Phosphorus Level 3.7, Total Bilirubin 0.2, Aspartate Amino Transf (AST/SGOT) 29, Alanine Aminotransferase (ALT/SGPT) 47, Alkaline Phosphatase 206H, Total Protein 6.7, Albumin 2.8L, Globulin 3.9, Albumin/Globulin Ratio 0.7L 01/12/20 12:06: POC Whole Blood Glucose 157H Height (Feet): 5 Height (Inches): 2.00 Weight (Pounds): 160 Assessment/Plan Problem List: (1) Anemia ICD Codes: D64.9 - Anemia, unspecified SNOMED: 558962551 (2) KATHARINE (acute kidney injury) ICD Codes: N17.9 - Acute kidney failure, unspecified SNOMED: 68291623, 9483101 (3) Diabetes ICD Codes: E11.9 - Type 2 diabetes mellitus without complications SNOMED: 95755277 (4) Malnutrition ICD Codes: E46 - Unspecified protein-calorie malnutrition SNOMED: 37032376 (5) HTN (hypertension) ICD Codes: I10 - Essential (primary) hypertension SNOMED: 52116768 (6) Chest pain ICD Codes: R07.9 - Chest pain, unspecified SNOMED: 68344606 Status: progressing, unchanged Assessment/Plan: reviwed chart and labs htn arf is improving lytes have improved Elaine Sarmiento MD Jan 12, 2020 13:04
--- NOTE | 2020-01-12 13:47 | NUR ---
NURSE NOTES: Contacted Dr Blue office number. Spoke to Meghan to page Dr Blue regarding Pt d/c from nephrology standpoint. said "ok to d/c from kidney point of view". order acknowledged and carried out. ORDER PUT IN OTHER NURSING CARE ORDERS.
--- NOTE | 2020-01-12 14:38 | NUR ---
NURSE NOTES: Notified sister of discharge. pt to be picked up at 1630.
--- NOTE | 2020-01-12 15:38 | NUR ---
NURSE NOTES: Pt is to take taxi to his car. Taxi set up to [employer] 5-25 mins
--- NOTE | 2020-01-12 15:46 | Cardiac Electrophysiology PN ---
Assessment/Plan Assessment/Plan 1. Chest pain and left arm pain and history of coronary artery disease and prior stent. Records from [facility] did not show any prior cardiac cath. Ruled out for GA. In the meantime, continue aspirin and Lipitor 80 mg daily and Lopressor 25 bid. EF 65%. Stress test showed no ischemia. 2. Hypertension. Avoid YOUSUF inhibitor and angiotensin-receptor lucas in view of creatinine of 4.5. On amlodipine 10 mg daily, p.r.n. clonidine and metoprolol 25 mg b.i.d. 4. Hyperlipidemia, on Lipitor 80 mg daily. 5. Diabetes, on insulin. 6. History of prior CVA in April 2018. 7. Acute renal failure, creatinine of 4.5. Cr now is 4.2 DW RN Subjective Subjective No CP or SOB. In SR on tele. Stress test was nonischemic. DC planning in progress Objective Last 24 Hour Vital Signs Date Time Temp Pulse Resp B/P (MAP) Pulse Ox O2 Delivery O2 Flow Rate FiO2 01/12/20 12:00 97.1 73 20 124/80 (95) 97 01/12/20 12:00 74 01/12/20 09:00 Room Air 01/12/20 08:48 140/90 01/12/20 08:48 86 140/90 01/12/20 08:47 86 140/90 01/12/20 08:00 71 01/12/20 04:00 68 01/12/20 04:00 97.7 77 20 114/78 (90) 96 01/12/20 00:00 70 01/12/20 00:00 97.7 70 18 120/78 (92) 95 01/12/20 00:00 120/78 01/11/20 21:01 69 129/78 01/11/20 21:00 Room Air 01/11/20 20:00 97.9 66 18 128/78 (95) 95 01/11/20 20:00 66 01/11/20 17:22 97.7 01/11/20 16:52 134/76 01/11/20 16:30 75 01/11/20 15:57 97.7 75 18 134/76 (95) 98 Intake and Output 01/11/20 01/12/20 19:00 07:00 Intake Total 1020 ml Balance 1020 ml Intake Oral 1020 ml # Voids 3 2 Laboratory Tests Test 01/11/20 16:45 01/11/20 20:58 01/12/20 05:08 01/12/20 06:30 POC Whole Blood Glucose 118 MG/DL (74-106) H 113 MG/DL (74-106) H 102 MG/DL (74-106) White Blood Count 5.6 K/UL (4.8-10.8) Red Blood Count 3.17 M/UL (4.70-6.10) L Hemoglobin 9.3 G/DL (14.2-18.0) L Hematocrit 29.0 % (42.0-52.0) L Mean Corpuscular Volume 92 FL (80-99) Mean Corpuscular Hemoglobin 29.5 PG (27.0-31.0) Mean Corpuscular Hemoglobin Concent 32.3 G/DL (32.0-36.0) Red Cell Distribution Width 13.0 % (11.6-14.8) Platelet Count 162 K/UL (150-450) Mean Platelet Volume 14.4 FL (6.5-10.1) H Neutrophils (%) (Auto) 67.8 % (45.0-75.0) Lymphocytes (%) (Auto) 18.8 % (20.0-45.0) L Monocytes (%) (Auto) 7.7 % (1.0-10.0) Eosinophils (%) (Auto) 4.5 % (0.0-3.0) H Basophils (%) (Auto) 1.2 % (0.0-2.0) Sodium Level 138 MMOL/L (136-145) Potassium Level 4.4 MMOL/L (3.5-5.1) Chloride Level 106 MMOL/L (98-107) Carbon Dioxide Level 22 MMOL/L (21-32) Anion Gap 10 mmol/L (5-15) Blood Urea Nitrogen 51 mg/dL (7-18) H Creatinine 4.2 MG/DL (0.55-1.30) H Estimat Glomerular Filtration Rate 15.5 mL/min (>60) Glucose Level 115 MG/DL (74-106) H Uric Acid 7.7 MG/DL (2.6-7.2) H Calcium Level 8.0 MG/DL (8.5-10.1) L Phosphorus Level 3.7 MG/DL (2.5-4.9) Total Bilirubin 0.2 MG/DL (0.2-1.0) Aspartate Amino Transf (AST/SGOT) 29 U/L (15-37) Alanine Aminotransferase (ALT/SGPT) 47 U/L (12-78) Alkaline Phosphatase 206 U/L (46-116) H Total Protein 6.7 G/DL (6.4-8.2) Albumin 2.8 G/DL (3.4-5.0) L Globulin 3.9 g/dL Albumin/Globulin Ratio 0.7 (1.0-2.7) L Test 01/12/20 12:06 POC Whole Blood Glucose 157 MG/DL (74-106) H Objective HEAD AND NECK: No JVD. LUNGS: Clear. CARDIOVASCULAR: Regular S1 and S2 with no gallop or murmur. ABDOMEN: Soft. EXTREMITIES: No pitting edema. Phan Pereira MD Jan 12, 2020 15:46
--- NOTE | 2020-01-12 15:56 | NUR ---
NURSE NOTES: Pt tele monitor and wrist band removed. IVs on R arm both removed, catheter intact. Pt changed into own clothing. pt belongings packed. Vault items counted with KRISH Lizama and information security associate. Pt education and paperwork provided. Pt verbalized understanding. Awaiting taxi. Addendum: 01/12/20 at 1625 by Mendy Palomares RN RN Pt escorted down to [facility]. Pt is stable on RA, no s/s or complaint of distress at this time. Pt IV site dry, no bleeding. Pt discharged to [facility] without incident.
[2020-01-12 16:00] VITALS: BP 133/81
--- NOTE | 2020-01-13 15:37 | Discharge Summary ---
Discharge Summary Discharge Summary _ DATE OF ADMISSION: 01/07/2020 1 DATE OF DISCHARGE: 01/12/2020 DISCHARGED BY: Dr. Sarmiento REASON FOR ADMISSION: 44 years old male with past medical history of hypertension, diabetes, coronary artery disease, status post stent placement in [facility] about a year ago , chronic kidney disease, right eye blindness, presented to emergency department with complaint of left-sided chest pain. Onset happened about 1.5 hours prior to coming to emergency department. Pain described as sharp, with radiation to left shoulder. Patient received aspirin en route to the hospital , given by paramedics. He denied headache or dizziness. No fever or chills. No shortness of breath or congestion. No palpitations. He denied abdominal pain , diaphoresis, nausea , vomiting, or diarrhea. No dysuria. Upon evaluation no leukocytosis , hemoglobin 9.7, hematocrit 29.5 , platelet count 187. Stable electrolytes. UN 54, creatinine 4.5. Glucose 163. Stable LFT . Troponin negative Rapid COVID-19 was negative. Chest x-ray demonstrated no acute cardiopulmonary pathology. Patient subsequently admitted to telemetry floor for further management. CONSULTANTS: wood carver Dr. Thomas mill order scheduler Dr. Aguirre skylights assembler Dr. Pennington [facility] COURSE: Patient admitted to telemetry floor. Director Data Processing closely followed. Serial troponin were negative. EKG revealed no acute ischemic changes. Patient was ruled out for acute myocardial infarction. Records from [facility] did not show any prior cardiac catheterization. Patient was on the antiplatelet therapy with aspirin , statin and beta- blockade. Echocardiogram revealed preserved ejection fraction 65%. No evidence of wall motion abnormality. Nuclear stress test showed no evidence of ischemia. Blood pressure was managed with amlodipine and metoprolol. Clonidine was on board as needed for blood pressure spikes. Director Data Processing advised to avoid YOUSUF inhibitor and angiotensin receptor lucas given renal failure. Renal ultrasound revealed no hydronephrosis. Both kidneys demonstrated normal echogenicity. Urinalysis with + 3 proteinuria. According to skylights assembler patient had acute renal failure , probably an underlying chronic kidney disease. Patient was hydrated. Patient started on Flomax. Renal parameters and electrolytes were closely monitored, electrolytes corrected as needed, and nephrotoxic's were avoided. Prior to discharge creatinine from 4.5 down to 4.2. Hemoglobin AND hematocrit were closely monitored with goal to keep hemoglobin above 7. Prior to discharge hemoglobin 9.3, hematocrit 29. Blood sugar management was done as per mill order scheduler recommendation . Hemoglobin A1c 5.6 . Patient was provided with diabetic diet and diabetic teaching. Patient was on long-acting Levemir at nighttime as well as a sliding scale of insulin before meals and and at nighttime as needed. Hypoglycemia protocol was in order. Supportive care provided . GI prophylaxis provided . Bowel regimen instituted. Patient clinically stabilized and was ready for discharge home. FINAL DIAGNOSES: Acute renal failure, probably on underlying chronic kidney disease Chest pain Coronary artery disease Hypertension Hyperlipidemia Diabetes mellitus History of CVA ( April 2018) Proteinuria Anemia DISCHARGE MEDICATIONS: See Medication Reconciliation list. DISCHARGE INSTRUCTIONS: Patient was discharged home . Follow-up with the primary care provider in 1 week. I have been assigned to dictate discharge summary for this account. I was not involved in the patient's management. Mariah Verde NP Jan 13, 2020 15:37
== END 2020-01-12 16:25 | disposition home or self-care (01) | DRG 469 ==
LOC: EDBD 08:45 → EMR 09:26 → 2E 09:52 → EDBEDREQ 10:43 → 2E 13:35
DX: N17.9 Acute kidney failure, unspecified (principal); I25.10 Atherosclerotic heart disease of native coronary artery without angina pectoris; E46 Unspecified protein-calorie malnutrition; E11.22 Type 2 diabetes mellitus with diabetic chronic kidney disease; R07.9 Chest pain, unspecified; I12.9 Hypertensive chronic kidney disease with stage 1 through stage 4 chronic kidney disease, or unspecified chronic kidney disease; N18.9 Chronic kidney disease, unspecified; Z95.5 Presence of coronary angioplasty implant and graft; Z88.6 Allergy status to analgesic agent; H54.61 Unqualified visual loss, right eye, normal vision left eye; Z86.73 Personal history of transient ischemic attack (TIA), and cerebral infarction without residual deficits; E78.5 Hyperlipidemia, unspecified; D64.9 Anemia, unspecified; F14.11 Cocaine abuse, in remission; F15.11 Other stimulant abuse, in remission; E11.65 Type 2 diabetes mellitus with hyperglycemia; Z79.82 Long term (current) use of aspirin
CPT/HCPCS: 36415; 71045; 76770; 78452; 80053; 80061; 80307; 81001; 82550; 82607; 82728; 82746; 82962; 82977; 83036; 83540; 83550; 83735; 83880; 84100; 84443; 84484; 84550; 85025; 85379; 86140; 93005; 93017; 93306; 96361; 96374; 96375; 99285; J1815; J2785; J7030; S5561; U0002